=== PATIENT | male | born 1945 | race Caucasian/White ===

== ENCOUNTER 2017-06-27 14:31 | Emergency (ER) | payer OTHER, BC ==
[2017-06-27 14:48] VITALS: TEMP 97.4; BMI 37.0
--- NOTE | 2017-06-27 16:15 | PDOC ---
History of Present Illness - General Chief Complaint: Pain, Acute Stated Complaint: LLQ PAIN X 1 WEEK Time Seen by Provider: 06/27/17 16:09 History Source: Patient Exam Limitations: No Limitations - History of Present Illness Travel History: No Initial Comments: 06/27/17 16:04 71-year-old male presents with left flank pain radiating to his left lower quadrant for the past 2 days worsened with movement patient states no difficulty urinating, moving bowels, fever, chills, chest pain, shortness of breath, cough, rash or abdominal distention. Patient states history of BPH and is under the care of Dr. Mary Savage taking Flomax as prescribed. 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 Timing/Duration: reports: intermittent Quality: reports: moderate, sharpness Abdominal Pain Onset Location: reports: flank Pain Radiation: reports: LLQ Activities at Onset: reports: none Aggravating Factors: improves with: Movement Alleviating Factors: improves with: None Past History - Travel Traveled outside of the country in the last 30 days: No Close contact w/someone who was outside of country & ill: No - Past Medical History Allergies/Adverse Reactions: Allergies Allergy/AdvReac Type Severity Reaction Status Date / Time ciprofloxacin [From Cipro] Allergy Verified 06/27/17 14:44 ciprofloxacin HCl Allergy Verified 06/27/17 14:44 [From Cipro] Home Medications: Ambulatory Orders Dutasteride [Avodart] 0.5 mg PO DAILY 12/27/11 Atorvastatin Ca [Lipitor (Restricted To Cardiology)] 40 mg PO HS 12/28/11 Bimatoprost [Lumigan] 5 ml OP HS 12/28/11 Epinastine HCl [Elestat] 5 ml OP BID 12/28/11 Glycerin/Propylene Glycol [Artificial Tears Drops] 30 ml OP DAILY 12/28/11 Nebivolol [Bystolic] 10 mg PO DAILY 12/28/11 Ziprasidone HCl [Geodon] 20 mg PO DAILY 12/28/11 GI Disorders: Yes (OBESITY.) HTN: Yes - Psycho/Social/Smoking Cessation Hx Anxiety: No Suicidal Ideation: No Smoking Status: No Smoking History: Never smoked Number of Cigarettes Smoked Daily: 0 Hx Alcohol Use: No Drug/Substance Use Hx: No Substance Use Type: None Patient Lives Alone: Yes Lives with/in: lives alone Review of Systems - Review of Systems Able to Perform ROS?: Yes Constitutional: No: Symptoms Reported HEENTM: No: Symptoms Reported Respiratory: No: Symptoms reported Cardiac (ROS): No: Symptoms Reported ABD/GI: Yes: Abdominal cramping. No: Constipated, Diarrhea, Nausea : No: Symptoms Reported Musculoskeletal: No: Symptoms Reported Integumentary: No: Symptoms Reported Endocrine: No: Symptoms Reported Hematologic/Lymphatic: No: Symptoms Reported *Physical Exam - Vital Signs Last Vital Signs Temp Pulse Resp BP Pulse Ox 97.4 F L 76 18 161/95 99 06/27/17 14:44 06/27/17 14:44 06/27/17 14:44 06/27/17 14:44 06/27/17 14:44 - Physical Exam General Appearance: Yes: Nourished, Appropriately Dressed, Disheveled. No: Apparent Distress HEENT: positive: Pharynx Normal (dry) Neck: positive: Supple Respiratory/Chest: positive: Lungs Clear, Normal Breath Sounds. negative: Respiratory Distress, Accessory Muscle Use Cardiovascular: positive: Regular Rhythm, Regular Rate. negative: Murmur Gastrointestinal/Abdominal: positive: Soft. negative: Tenderness (no reproducible pain) Musculoskeletal: negative: CVA Tenderness Extremity: positive: Normal Capillary Refill. negative: Pedal Edema Integumentary: positive: Normal Color, Dry, Warm Neurologic: positive: Motor Strength 5/5 (ambulatory) ED Treatment Course - LABORATORY CBC & Chemistry Diagram: 06/27/17 16:37 06/27/17 16:37 Medical Decision Making - Medical Decision Making 06/27/17 17:15 Pt with c/o of left flnk pain that is intermittent and sharp worsened with movement. pt states hx of renal colic. On exam pt had no acute findings or reproducible pain. Pt ordered for labs, ua, ivf, spiral ct, and toradol. 06/27/17 17:16 Laboratory Tests 06/27/17 16:37 WBC 10.3 H Hgb 13.1 Hct 38.8 Plt Count 118 L Neutrophils % 87.3 H Lymphocytes % 3.7 L
[2017-06-27] MEDS ORDERED: morphine CARPU-JECT 2 MG/1 ML DISP.SYRIN IVPUSH ONE (16:26)
[2017-06-27] MEDS ORDERED: SODIUM CHLORIDE 1,000 ML IV STA (16:26)
[2017-06-27] MEDS ORDERED: morphine CARPU-JECT 2 MG/1 ML DISP.SYRIN ONE (16:43)
[2017-06-27 17:02] LABS: BASOPHIL 0.3 % (0-2.0); EOSINOPHIL 0.1 % (0-4.5); MCH 31.5 pg (25.7-33.7); MCHC 33.8 g/dl (32.0-35.9); MEAN CELL VOLUME 93.1 fl (80-96); MEAN PLT VOLUME 7.5 fl (7.5-11.1); NEUTROPHILS 87.3 % (42.8-82.8); PLATELET COUNT 118 K/MM3 (134-434); RDW 14.3 % (11.9-15.9); WHITE BLOOD COUNT 10.3 K/mm3 (4.0-10.0)
[2017-06-27 17:22] LABS: URINE APPEARANCE CLEAR; URINE BILIRUBIN NEGATIVE (NEGATIVE); URINE BLOOD 1+ (NEGATIVE); URINE COLOR YELLOW; URINE GLUCOSE (UA) NEGATIVE (NEGATIVE); URINE KETONE NEGATIVE (NEGATIVE); URINE LEUK ESTERASE NEGATIVE (NEGATIVE); URINE NITRITE NEGATIVE (NEGATIVE); URINE PROTEIN NEGATIVE (NEGATIVE); URINE UROBILINOGEN NEGATIVE mg/dL (0.2-1.0)
[2017-06-27 17:28] LABS: URINE MUCUS RARE; URINE RBC <1 /hpf (0-3); URINE WBC 2 /hpf (3-5)
[2017-06-27 17:57] LABS: ALBUMIN 3.8 g/dl (3.4-5.0); ALK PHOS 97 U/L (45-117); ANION GAP 9 (8-16); BILIRUBIN,TOTAL 0.6 mg/dL (0.2-1.0); CO2 25 mmol/L (21-32); CREATININE 2.2 mg/dL (0.7-1.3); GLUCOSE,RANDOM 119 mg/dL (74-106); SGOT/AST 12 U/L (15-37); SGPT/ALT 17 U/L (12-78); TOT PROT 7.4 g/dl (6.4-8.2)
--- NOTE | 2017-06-27 21:23 | PDOC ---
*Physical Exam - Vital Signs Last Vital Signs Temp Pulse Resp BP Pulse Ox 97.4 F L 76 18 161/95 99 06/27/17 14:44 06/27/17 14:44 06/27/17 14:44 06/27/17 14:44 06/27/17 14:44 ED Treatment Course - LABORATORY CBC & Chemistry Diagram: 06/27/17 16:37 06/27/17 16:37 - ADDITIONAL ORDERS Additional order review: Laboratory Results 06/27/17 06/27/17 16:37 16:37 Sodium 137 Potassium 4.6 Chloride 103 Carbon Dioxide 25 Anion Gap 9 BUN 28 H Creatinine 2.2 H Creat Clearance w eGFR 29.49 Random Glucose 119 H Calcium 9.0 Total Bilirubin 0.6 AST 12 L ALT 17 Alkaline Phosphatase 97 Total Protein 7.4 Albumin 3.8 Urine Color Yellow Urine Appearance Clear Urine pH 5.0 Ur Specific [place] 1.025 Urine Protein Negative Urine Glucose (UA) Negative Urine Ketones Negative Urine Blood 1+ H Urine Nitrite Negative Urine Bilirubin Negative Urine Urobilinogen Negative Ur Leukocyte Esterase Negative Urine RBC <1 Urine WBC 2 Urine Mucus Rare 06/27/17 16:37 RBC 4.17 MCV 93.1 MCHC 33.8 RDW 14.3 MPV 7.5 Neutrophils % 87.3 H Lymphocytes % 3.7 L Monocytes % 8.6 Eosinophils % 0.1 Basophils % 0.3 - Medications Given in the ED: ED Medications Discontinued Medications Generic Name Dose Route Start Last Admin Trade Name Freq PRN Reason Stop Dose Admin Sodium Chloride 1,000 mls @ 1,000 mls/hr 06/27/17 16:26 06/27/17 16:45 Normal Saline - IV 06/27/17 17:25 1,000 mls/hr ASDIR STA Administration Morphine Sulfate 2 mg 06/27/17 16:26 06/27/17 16:44 Morphine Injection - IVPUSH 06/27/17 16:27 2 mg ONCE ONE Administration Progress Note - Progress Note Progress Note: 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 *DC/Admit/Observation/Transfer Diagnosis at time of Disposition: Renal colic on left side - Discharge Dispostion Disposition: HOME Condition at time of disposition: Stable Admit: No - Prescriptions Prescriptions: Ketorolac Tromethamine [Toradol] 10 mg PO TID #15 tablet Ketorolac Tromethamine [Toradol] 10 mg PO TID #15 tablet - Referrals Referrals: Quan Hollingsworth [Primary Care Provider] - Felice Rea MD [Staff Physician] - - Patient Instructions Printed Discharge Instructions: Kidney Stones -- Adult Additional Instructions: Increase fluids Follow up with the urologist Return to the ER for severe/persistent/worsening symptoms Rx: Toradol 10mg take 1 tablet by mouth three times a day as needed for severe pain Take tylenol as needed for mild pain
[2017-06-27] MEDS ORDERED: KETOROLAC TROMETHAMINE 30 MG/1 ML VIAL IVPUSH ONE (21:34)
[2017-06-27] MEDS ORDERED: KETOROLAC TROMETHAMINE 30 MG/1 ML VIAL ONE (22:40)
[2017-06-27 22:58] VITALS: BP 165/91; PULSE 80
--- NOTE | 2017-06-30 07:52 | PDOC ---
Patient Follow-up (Call Back) - Post ED Follow - Up Condition at time of discharge: Stable Disposition at time of original discharge: HOME Reason for Call Back: Abnwl. Microbiology (Prelim. UC shows enterococcus colony count 20,000-30,000 CFU's. No treatment needed at this time as threshold for treatment is greater than 100,000 CFU's)
== END 2017-06-27 22:58 | disposition home or self-care (01) ==
LOC: SUPCPDRO 14:31 → JER 14:31
PROC: 3E0337Z Introduction of Electrolytic and Water Balance Substance into Peripheral Vein, Percutaneous Approach (ICD-10-PCS; principal; 2017-06-27)
PROC: 3E033NZ Introduction of Analgesics, Hypnotics, Sedatives into Peripheral Vein, Percutaneous Approach (ICD-10-PCS; 2017-06-27)
PROC: 3E0333Z Introduction of Anti-inflammatory into Peripheral Vein, Percutaneous Approach (ICD-10-PCS; 2017-06-27)
DX: N23 Unspecified renal colic (principal); K65.4 Sclerosing mesenteritis
CPT/HCPCS: 36415; 71010-TC; 74176; 80053; 81003; 81015; 85025; 87086; 87186; 96361; 96374; 96375; 99283-25

== ENCOUNTER 2019-07-03 08:14 | Emergency (ER) | payer OTHER, BC ==
--- NOTE | 2019-07-03 08:26 | PDOC ---
History of Present Illness - General Chief Complaint: Overdose Stated Complaint: WEAKNESS Time Seen by Provider: 07/03/19 08:25 - History of Present Illness Initial Comments: 07/03/19 09:18 HPI 73 year old man has a history of HTN, HLD, anxiety and schizophrenic paranoid who presents with accidental overdose of his ziprasidone for 5 days. He was supposed to take 60mg daily however he had a recent medication change to one of his other medications, but mistook it for his ziprasidone and has been taking 300mg of the ziprasidone daily for 5 days. He reports that he felt lightheadedness, weakness, and unsteadiness on his feet. He called poison control, who told him to come to the ED. He denies SI/ HI/ auditory or visual hallucinations. Patient additionally reports he has had some bacteria in his urine and some urinary flow problems ROS GENERAL/CONSTITUTIONAL: No fever or chills. No weakness. HEAD, EYES, EARS, NOSE AND THROAT: No change in vision. No ear pain or discharge. No sore throat. CARDIOVASCULAR: No chest pain or shortness of breath RESPIRATORY: No cough, wheezing, or hemoptysis. GASTROINTESTINAL: No nausea, vomiting, diarrhea or constipation. GENITOURINARY: No dysuria, frequency, or change in urination. MUSCULOSKELETAL: No joint or muscle swelling or pain. No neck or back pain. SKIN: No rash NEUROLOGIC: No headache, vertigo, loss of consciousness, or change in strength/ sensation. PE GENERAL: Awake, alert, and fully oriented, in no acute distress, slow speech HEAD: No signs of trauma, normocephalic, atraumatic EYES: 2mm PERRLA, EOMI, no nystagmus, sclera anicteric, conjunctiva clear ENT: oropharynx clear without exudates. Moist mucosa NECK: Normal ROM, supple LUNGS: No distress, speaks full sentences, clear to auscultation bilaterally HEART: Regular rate and rhythm, normal S1 and S2, no murmurs, rubs or gallops, peripheral pulses normal and equal bilaterally. ABDOMEN: Soft, nontender, normoactive bowel sounds. No guarding, no rebound. No masses EXTREMITIES : Normal inspection, Normal range of motion, trace edema around ankles. No clubbing or cyanosis. NEUROLOGICAL: Cranial nerves II through XII grossly intact. Normal speech, no focal sensorimotor deficits SKIN: Warm, Dry, normal turgor, no rashes or lesions noted MDM DDX including but not limited to: W/U: - TX: - ED Course: PCP Dr. Hollingsworth attempted to be reached however, as it is a holiday weekend the office is closed Pharmacy contacted and reported: proponalol 10mg BID, pravastatin 20mg daily, losartan 25mg daily, ziprasidone 60mg daily, amlodipine 15mg daily Poison control contacted, recommend observation for [address] Lyons (psychiatry) and Dr. Márquez who recommends that patient not take his Ziprasidone until Thursday and should take 3 x 20mg and then follow up with him in clinic on Thursday. Physicians know this patient well and feel that he is reliable and complaint out patient. Will complete obs, repeat ekg and walk patient prior to discharge . Patient agrees to plan expresses understanding and agrees to dsicharge . Maria Elena De Los Santos, PGY2 Emergency Medicine Past History - Past Medical History Allergies/Adverse Reactions: Allergies Allergy/AdvReac Type Severity Reaction Status Date / Time ciprofloxacin [From Cipro] Allergy Verified 07/04/19 07:23 ciprofloxacin HCl Allergy Verified 07/04/19 07:23 [From Cipro] Home Medications: Ambulatory Orders Dutasteride [Avodart] 0.5 mg PO DAILY 12/27/11 Atorvastatin Ca [Lipitor (Restricted To Cardiology)] 20 mg PO HS 12/28/11 Bimatoprost [Lumigan] 5 ml OP HS 12/28/11 Epinastine HCl [Elestat] 5 ml OP BID 12/28/11 Nebivolol [Bystolic] 15 mg PO DAILY 12/28/11 Ziprasidone HCl [Geodon] 60 mg PO DAILY 12/28/11 Amlodipine Besylate [Norvasc -] 2.5 mg PO DAILY 06/27/17 Tamsulosin HCl [Flomax] 0.8 mg PO DAILY 06/27/17 Losartan Potassium 25 mg PO DAILY 07/03/19 COPD: No GI Disorders: Yes (OBESITY.) HTN: Yes Psychiatric Problems: Yes (anxiety) - Suicide/Smoking/Psychosocial Hx Smoking Status: No Smoking History: Never smoked Number of Cigarettes Smoked Daily: 0 Hx Alcohol Use: No Drug/Substance Use Hx: No Substance Use Type: None *Physical Exam - Vital Signs Last Vital Signs Temp Pulse Resp BP Pulse Ox 97.9 F 60 18 148/97 99 07/03/19 08:17 07/03/19 08:17 07/03/19 08:17 07/03/19 08:17 07/03/19 08:17 ED Treatment Course - LABORATORY CBC & Chemistry Diagram: 07/03/19 08:51 07/03/19 08:51 *DC/Admit/Observation/Transfer Diagnosis at time of Disposition: Overdose - Discharge Dispostion Disposition: HOME Condition at time of disposition: Stable Decision to Admit order: No - Referrals Referrals: Quan Hollingsworth [Primary Care Provider] - - Patient Instructions Printed Discharge Instructions: DI for Drug Overdose in Adults Additional Instructions: You were seen in the ED for complaints of lightheadedness and unsteadiness on feet. You were observed for 6 hours and had no complaints. Tonight (Thursday) you will pick you your Geodon 20mg at your pharmacy at [facility] on Thursday you will take 3 of the 20mg tablets Thursday you will see Dr. Márquez in the office for an appointment. Return to the ED if you experience worsening lightheadedness and unsteadiness on the feet, nausea, vomiting or chest pain. - Post Discharge Activity
[2019-07-03] MEDS ORDERED: SODIUM CHLORIDE 1,000 ML IV SCH (08:30)
[2019-07-03 09:07] VITALS: BMI 40.1
[2019-07-03 09:22] LABS: BASO % 0.4 % (0-2.0); EOS % 0.8 % (0-4.5); HEMATOCRIT 35.8 % (35.4-49); HEMOGLOBIN 12.1 GM/dL (11.7-16.9); LYMPH % 10.3 % (8-40); MCH 31.8 pg (25.7-33.7); MCHC 33.9 g/dl (32.0-35.9); MEAN CELL VOLUME 93.9 fl (80-96); MEAN PLT VOLUME 7.3 fl (7.5-11.1); MONO % 6.1 % (3.8-10.2); NEUT % 82.4 % (42.8-82.8); PLATELET COUNT 179 K/MM3 (134-434); RBC 3.81 M/mm3 (4.00-5.60); RDW 15.1 % (11.9-15.9); WHITE BLOOD COUNT 10.3 K/mm3 (4.0-10.0)
[2019-07-03] MEDS ORDERED: SODIUM CHLORIDE 500 ML IV SCH (09:30)
--- NOTE | 2019-07-03 09:37 | EKG ---
Test Reason : Blood Pressure : / mmHG Vent. Rate : 058 BPM Atrial Rate : 258 BPM P-R Int : 000 ms QRS Dur : 074 ms QT Int : 478 ms P-R-T Axes : 050 016 021 degrees QTc Int : 469 ms POOR DATA QUALITY, INTERPRETATION MAY BE ADVERSELY AFFECTED SINUS BRADYCARDIA ABNORMAL ECG Confirmed by BARI SHEPPARD, YARON ([id number]) on 07/03/2019 9:37:44 AM Referred By: Confirmed By:YARON CANDELARIA MD
--- NOTE | 2019-07-03 09:55 | PDOC ---
Documentation entered by Андрей Alcantara SCRIBE, acting as scribe for Anju Duarte DO. Anju Duarte, DO: This documentation has been prepared by the Quinton mclean Nirvannie, SCRIBE, under my direction and personally reviewed by me in its entirety. I confirm that the documentation accurately reflects all work, treatment, procedures, and medical decision making performed by me. Attending Attestation - Resident Resident Name: Maria Elena De Los Santos - ED Attending Attestation I have performed the following: I have examined & evaluated the patient, The case was reviewed & discussed with the resident, I agree w/resident's findings & plan - HPI HPI: 07/03/19 10:02 The patient is a 73 year old male, with a significant past medical history of anxiety, schizophrenia, HTN, and HLD, who presents to the emergency department with, accidental Ziprasidone overdose (last dosage 7pm). As per patient, he went to see his psychiatrist (Dr. Mariangel Lyons, [place]) 5 days ago ( Thursday) at which time he believes his psychiatrist changed his Ziprasidone 60 mg from once daily to 5 times times/day. Patient endorses feeling lightheadedness, dizziness, and notes an unsteady gait. He also notes 3 episodes of abnormal urine stream yesterday, as he attempted to urinate felt mild hesistency and the stream deviated to the left wetting his pants. Patient recently had bloodwork preformed by his PCP Dr. Hollingsworth and endorses normal Creatine, BUN, and kidney functions with a urinalysis depicting high to moderate bacteria with negative nitrites, proteins, and glucose. He denies any suicidal or homicidal ideation. He denies any recent chest pain or shortness of breath. He denies any recent dysuria or hematuria. He denies any recent fevers, chills, or headache. He denies any recent nausea, vomiting, diarrhea, or constipation. Allergies: Ciprofloxacin. Primary Care Physician: Dr. Hollingsworth Psychiatrist: Dr. Mariangel Lyons (O: [phone]; C: [phone], [place], [place] ) - Physicial Exam PE: 07/03/19 10:09 Constitutional: +Dry urine odor. Awake, alert, oriented. No acute distress. Head: Normocephalic. Atraumatic Eyes: Pupils 2mm Equal, Round, Reactive to Light and Accommodation . EOMI. Conjunctivae are not pale. ENT: Mucous membranes are moist and intact. Posterior pharynx without exudates or erythema. Uvula midline. Neck: Supple. Full ROM. No lymphadenopathy. Cardiovascular: Regular rate. Regular rhythm. S1, S2 regular. Distal pulses are 2+ and symmetric. Pulmonary/Chest: No evidence of respiratory distress. Clear to auscultation bilaterally No wheezing, rales or rhonchi. Abdominal: +Obese. Soft and non-distended. There is no tenderness. No rebound , guarding or rigidity. No organomegaly. No palpable masses. Good bowel sounds. Back: No CVA tenderness. Musculoskeletal: +Trace lower extremity edema. No cyanosis. No clubbing. Full range of motion in all extremities. No calf tenderness. Radial/pedal pulses are intact and 2+ bilaterally Skin: Skin is warm and dry. No petechiae. No purpura. Neurological: Slow, flat affect. Alert and oriented to person, place, and time. Cranial nerves II-XII are grossly intact. Strength is grossly symmetric. No sensory deficits. Psychiatric: Good eye contact. +Flat affect. - Medical Decision Making 07/03/19 09:49 I, Dr. Anju Duarte, DO, attest that this document has been prepared under my direction and personally reviewed by me in its entirety. I further attest, that it accurately reflects all work, treatment, procedures and medical decision -making performed by me. 07/03/19 09:49 a/p: 73yo male with 2 complaints -1st complaint is abnl urination since yesterday - urine stream arced to the side yesterday staining his pants -2nd complaint was that his psychiatrist - Dr. Lyons changed his geodon dosing - thinks he was told to take 5 tabs of 60mg geodon at night - has been doing this since thursday -pt called poison control who told him to come in he was feeling weak today -pt denies mccabe, no cp/sob, no abd pain, no dysuria -pt denies si/hi -poss overdose from geodon -pt with flat affect -poss uti -will send labs, ua, poison control, monitoring -will call Dr. Lyons -will call Dr. Sarah 07/03/19 09:[address] Sarah message left for dr. lyons 07/03/19 10:06 labs reviewed and stable pending ua 9:30AM Call placed to Dr. Mariangel Lyons, psychiatrist's office, awaiting call back. 10:00AM Second call placed to Dr. Mariangel Lyons, psychiatrist's office, awaiting call back. 07/03/19 11:11 ua neg will continue to monitor for 6 hours per poison control 07/03/19 11:21 resident discussed the case with Dr. Lyons 07/03/19 11:[address] Lyons supposed to take 5 20mg geodon for max of 100 per day and not 5 60mg tabs per day pt with hx of paranoia and anxiety - recently stopped latuda 07/03/19 11:[address] Sarah 07/03/19 11:[address] Márquez 07/03/19 12:51 resident discussed the case with Dr. Márquez - will see in clinic on thursday schizophrenia with paranoid 07/03/19 13:24 resident again discused with Dr. Lyons- plan for 3 20mg geodon tomorrow, see jack on thursday07/03/19 13:30 pt agrees with the plan stable for dc to home in 40 min Heart Score/ECG Review - ECG Intrepretation Comment:: 07/03/19 09:55 sinus darrell ta 58, baseline artifact, nl axis, nl interval, abnl ekg
[2019-07-03 09:57] LABS: ALBUMIN 3.4 g/dl (3.4-5.0); BILIRUBIN,TOTAL 0.4 mg/dL (0.2-1); BLOOD UREA NITROGEN 14.9 mg/dL (7-18); CALCIUM 8.6 mg/dL (8.5-10.1); CREATININE 1.1 mg/dL (0.55-1.3); POTASSIUM 4.1 mmol/L (3.5-5.1); TOT PROT 6.6 g/dl (6.4-8.2)
[2019-07-03 10:53] LABS: URINE APPEARANCE CLEAR; URINE BILIRUBIN NEGATIVE (NEGATIVE); URINE COLOR YELLOW; URINE GLUCOSE (UA) NEGATIVE (NEGATIVE); URINE KETONE NEGATIVE (NEGATIVE); URINE LEUK ESTERASE NEGATIVE (NEGATIVE); URINE NITRITE NEGATIVE (NEGATIVE); URINE PROTEIN NEGATIVE (NEGATIVE)
[2019-07-03 10:56] LABS: COCAINE, UR NEGATIVE ng/ml (CUTOFF=300); METHADONE, UR NEGATIVE ng/ml (CUTOFF=300); OPIATES, URI NEGATIVE ng/ml (CUTOFF=300); PHENCYCLIDINE,URINE NEGATIVE ng/ml (CUTOFF=25); URINE AMPHETAMINES NEGATIVE ng/ml (CUTOFF=500); URINE BARBITURATES NEGATIVE ng/ml (CUTOFF=200); URINE BENZODIAZEPINES NEGATIVE ng/ml (CUTOFF=200)
[2019-07-03 14:19] VITALS: BP 159/89; PULSE 62; TEMP 98
--- NOTE | 2019-07-04 09:32 | EKG ---
Test Reason : Blood Pressure : / mmHG Vent. Rate : 061 BPM Atrial Rate : 061 BPM P-R Int : 198 ms QRS Dur : 078 ms QT Int : 460 ms P-R-T Axes : 051 015 019 degrees QTc Int : 463 ms NORMAL SINUS RHYTHM NORMAL ECG WHEN COMPARED WITH ECG OF 03-JUL-2019 08:36, SINUS RHYTHM HAS REPLACED ATRIAL FLUTTER Confirmed by MUSA SHEPPARD, KILO ([id number]) on 07/04/2019 9:31:47 AM Referred By: Confirmed By:KILO VIGIL MD
== END 2019-07-03 14:22 | disposition home or self-care (01) ==
LOC: JER 08:14
PROC: 3E033GC Introduction of Other Therapeutic Substance into Peripheral Vein, Percutaneous Approach (ICD-10-PCS; principal; 2019-07-03)
DX: R42 Dizziness and giddiness (principal); I10 Essential (primary) hypertension; F41.9 Anxiety disorder, unspecified; F20.0 Paranoid schizophrenia
CPT/HCPCS: 36415; 80053; 80307; 81003; 85025; 87077; 87086; 87186; 93005; 93010; 96374; 99285-25; J7030

== ENCOUNTER 2019-07-04 07:00 | Emergency (ER) | payer OTHER, BC ==
[2019-07-04 07:27] VITALS: TEMP 98.1; BMI 40.1
--- NOTE | 2019-07-04 07:49 | PDOC ---
History of Present Illness - General Chief Complaint: Lightheaded Stated Complaint: LIGHTHEADED/NAUSEA Time Seen by Provider: 07/04/19 07:30 - History of Present Illness Initial Comments: 07/04/19 07:52 73 year old man has a history of HTN, HLD, anxiety and schizophrenic paranoid, recent accidental overdose of ziprasidone who presents with nausea and lightheadedness ROS GENERAL/CONSTITUTIONAL: No fever or chills. No weakness. HEAD, EYES, EARS, NOSE AND THROAT: No change in vision. No ear pain or discharge. No sore throat. CARDIOVASCULAR: No chest pain or shortness of breath RESPIRATORY: No cough, wheezing, or hemoptysis. GASTROINTESTINAL: No nausea, vomiting, diarrhea or constipation. GENITOURINARY: No dysuria, frequency, or change in urination. MUSCULOSKELETAL: No joint or muscle swelling or pain. No neck or back pain. SKIN: No rash NEUROLOGIC: No headache, vertigo, loss of consciousness, or change in strength/ sensation. ENDOCRINE: No increased thirst. No abnormal weight change HEMATOLOGIC/LYMPHATIC: No anemia, easy bleeding, or history of blood clots. ALLERGIC/IMMUNOLOGIC: No hives or skin allergy. PE GENERAL: Awake, alert, and fully oriented, in no acute distress HEAD: No signs of trauma, normocephalic, atraumatic EYES: PERRLA, EOMI, sclera anicteric, conjunctiva clear ENT: Auricles normal inspection, hearing grossly normal, nares patent, oropharynx clear without exudates. Moist mucosa NECK: Normal ROM, supple, no lymphadenopathy, JVD, or masses LUNGS: No distress, speaks full sentences, clear to auscultation bilaterally HEART: Regular rate and rhythm, normal S1 and S2, no murmurs, rubs or gallops, peripheral pulses normal and equal bilaterally. ABDOMEN: Soft, nontender, normoactive bowel sounds. No guarding, no rebound. No masses EXTREMITIES : Normal inspection, Normal range of motion, no edema. No clubbing or cyanosis. NEUROLOGICAL: Cranial nerves II through XII grossly intact. Normal speech, normal gait, no focal sensorimotor deficits SKIN: Warm, Dry, normal turgor, no rashes or lesions noted MDM DDX including but not limited to: W/U: - TX: - Scores: ED Course: ekg: sinus at 59bpm, QTc [address] - no acute pathology ua, utox- wnl Maria Elena Filiberto, PGY2 Emergency Medicine 07/04/19 10:46 07/04/19 10:46 07/04/19 10:47 Past History - Past Medical History Allergies/Adverse Reactions: Allergies Allergy/AdvReac Type Severity Reaction Status Date / Time ciprofloxacin [From Cipro] Allergy Verified 07/04/19 07:23 ciprofloxacin HCl Allergy Verified 07/04/19 07:23 [From Cipro] Home Medications: Ambulatory Orders Dutasteride [Avodart] 0.5 mg PO DAILY 12/27/11 Atorvastatin Ca [Lipitor (Restricted To Cardiology)] 20 mg PO HS 12/28/11 Bimatoprost [Lumigan] 5 ml OP HS 12/28/11 Epinastine HCl [Elestat] 5 ml OP BID 12/28/11 Nebivolol [Bystolic] 15 mg PO DAILY 12/28/11 Ziprasidone HCl [Geodon] 60 mg PO DAILY 12/28/11 Amlodipine Besylate [Norvasc -] 2.5 mg PO DAILY 06/27/17 Tamsulosin HCl [Flomax] 0.8 mg PO DAILY 06/27/17 Losartan Potassium 25 mg PO DAILY 07/03/19 COPD: No GI Disorders: Yes (OBESITY.) HTN: Yes Psychiatric Problems: Yes (anxiety) - Suicide/Smoking/Psychosocial Hx Smoking Status: No Smoking History: Never smoked Number of Cigarettes Smoked Daily: 0 Hx Alcohol Use: No Drug/Substance Use Hx: No Substance Use Type: None *Physical Exam - Vital Signs Last Vital Signs Temp Pulse Resp BP Pulse Ox 98.1 F 63 18 182/81 H 96 07/04/19 07:23 07/04/19 07:23 07/04/19 07:23 07/04/19 07:23 07/04/19 07:23 ED Treatment Course - LABORATORY CBC & Chemistry Diagram: 07/04/19 07:50 07/04/19 07:50 *DC/Admit/Observation/Transfer Diagnosis at time of Disposition: Dizziness - Discharge Dispostion Disposition: HOME Condition at time of disposition: Stable Decision to Admit order: No - Referrals Referrals: Quan Hollingsworth [Primary Care Provider] - - Patient Instructions Printed Discharge Instructions: DI for Dizziness-Nonvertigo, DI for Nausea -- Adult Additional Instructions: You were seen in the ED for complaints of lightheadedness and nausea Your labwork and imaging were unremarkable. Today (Thursday) you will take 3 of the 20mg tablets Thursday you will see Dr. Márquez in the office for an appointment. Return to the ED if you experience worsening lightheadedness and unsteadiness on the feet, nausea, vomiting or chest pain. - Post Discharge Activity
[2019-07-04] MEDS ORDERED: MECLIZINE HCL 25 MG TABLET (FP) PO ONE (08:28)
[2019-07-04 08:32] LABS: BASO % 0.4 % (0-2.0); EOS % 1.3 % (0-4.5); HEMATOCRIT 35.8 % (35.4-49); HEMOGLOBIN 12.1 GM/dL (11.7-16.9); LYMPH % 16.7 % (8-40); MCH 31.7 pg (25.7-33.7); MCHC 33.8 g/dl (32.0-35.9); MEAN CELL VOLUME 93.8 fl (80-96); MEAN PLT VOLUME 7.5 fl (7.5-11.1); MONO % 6.4 % (3.8-10.2); NEUT % 75.2 % (42.8-82.8); PLATELET COUNT 193 K/MM3 (134-434); RBC 3.82 M/mm3 (4.00-5.60); RDW 15.1 % (11.9-15.9); WHITE BLOOD COUNT 8.3 K/mm3 (4.0-10.0)
[2019-07-04] MEDS ORDERED: MECLIZINE HCL 25 MG TABLET (FP) ONE (08:35)
[2019-07-04 08:38] LABS: ALBUMIN 3.5 g/dl (3.4-5.0); ALK PHOS 103 U/L (45-117); ANION GAP 6 MMOL/L (8-16); BILIRUBIN,TOTAL 0.4 mg/dL (0.2-1); CALCIUM 9.1 mg/dL (8.5-10.1); CHLORIDE 107 mmol/L (98-107); CO2 25 mmol/L (21-32); GLUCOSE,RANDOM 112 mg/dL (74-106); POTASSIUM 4.2 mmol/L (3.5-5.1); SGOT/AST 17 U/L (15-37); SGPT/ALT 16 U/L (13-61); SODIUM 139 mmol/L (136-145); TOT PROT 6.9 g/dl (6.4-8.2)
--- NOTE | 2019-07-04 09:07 | EKG ---
Test Reason : Blood Pressure : / mmHG Vent. Rate : 059 BPM Atrial Rate : 059 BPM P-R Int : 190 ms QRS Dur : 080 ms QT Int : 438 ms P-R-T Axes : 061 015 022 degrees QTc Int : 433 ms POOR DATA QUALITY, INTERPRETATION MAY BE ADVERSELY AFFECTED SINUS BRADYCARDIA OTHERWISE NORMAL ECG WHEN COMPARED WITH ECG OF 03-JUL-2019 13:46, NO SIGNIFICANT CHANGE WAS FOUND Confirmed by MUSA SHEPPARD, KILO ([id number]) on 07/04/2019 9:07:21 AM Referred By: Confirmed By:KILO VIGIL MD
[2019-07-04 09:42] LABS: PH,URINE 7.5 (5.0-8.0); URINE APPEARANCE CLEAR; URINE BILIRUBIN NEGATIVE (NEGATIVE); URINE COLOR YELLOW; URINE GLUCOSE (UA) NEGATIVE (NEGATIVE); URINE KETONE NEGATIVE (NEGATIVE); URINE LEUK ESTERASE NEGATIVE (NEGATIVE); URINE NITRITE NEGATIVE (NEGATIVE); URINE PROTEIN NEGATIVE (NEGATIVE); URINE UROBILINOGEN 0.2 mg/dL (0.2-1.0)
[2019-07-04 09:53] LABS: COCAINE, UR NEGATIVE ng/ml (CUTOFF=300); METHADONE, UR NEGATIVE ng/ml (CUTOFF=300); OPIATES, URI NEGATIVE ng/ml (CUTOFF=300); PHENCYCLIDINE,URINE NEGATIVE ng/ml (CUTOFF=25); URINE AMPHETAMINES NEGATIVE ng/ml (CUTOFF=500); URINE BARBITURATES NEGATIVE ng/ml (CUTOFF=200); URINE BENZODIAZEPINES NEGATIVE ng/ml (CUTOFF=200)
[2019-07-04] MEDS ORDERED: ONDANSETRON 4 MG/2 ML VIAL IVPUSH ONE (10:37)
[2019-07-04] MEDS ORDERED: ONDANSETRON 4 MG/2 ML VIAL ONE (10:49)
[2019-07-04 11:31] VITALS: BP 136/76; PULSE 60
--- NOTE | 2019-07-04 18:11 | PDOC ---
Documentation entered by Thom Meadows SCRIBE, acting as scribe for Ethel Wynn MD. Ethel Wynn MD: This documentation has been prepared by the Abdiel mclean Daniel, SCRIBE, under my direction and personally reviewed by me in its entirety. I confirm that the documentation accurately reflects all work, treatment, procedures, and medical decision making performed by me. Attending Attestation - Resident Resident Name: Maria Elena De Los Santos - ED Attending Attestation I have performed the following: I have examined & evaluated the patient, The case was reviewed & discussed with the resident, I agree w/resident's findings & plan, Exceptions are as noted - HPI HPI: 07/04/19 11:57 73 year old man has a history of HTN, HLD, anxiety and schizophrenia, recent accidental overdose of ziprasidone who presents with nausea and lightheadedness this morning. Pt reports the lightheadedness occurred when he was standing out of bed this morning and since then, he has felt nauseous. Denies fevers, chills , headache, cp, sob, focal weakness/numbness, abd pain, LE edema. - Physicial Exam PE: 07/04/19 11:44 GENERAL: Awake, alert, and fully oriented, in no acute distress HEAD: No signs of trauma. EYES: PERRLA, EOMI, sclera anicteric, conjunctiva clear ENT: Auricles normal inspection, hearing grossly normal, nares patent, oropharynx clear without exudates. Moist mucosa NECK: Normal ROM, supple, no lymphadenopathy, JVD, or masses LUNGS: Breath sounds equal, clear to auscultation bilaterally. No wheezes, and no crackles HEART: Regular rate and rhythm, normal S1 and S2, no murmurs, rubs or gallops ABDOMEN: Soft, nontender, normoactive bowel sounds. No guarding, no rebound. No masses EXTREMITIES: Normal range of motion, no edema. No clubbing or cyanosis. No cords , erythema, or tenderness BACK: No midline spinal tenderness in cervical/thoracic/lumbar region NEUROLOGICAL: Normal speech, cranial nerves intact, 5/5 strength in all 4 extremities, normal sensation to light touch in all 4 extremities, normal cerebellar exam, slow but steady and normal gait SKIN: Warm, Dry, normal turgor, no rashes or lesions noted. - Medical Decision Making 07/04/19 12:01 73yo M prseents to the ED with lightheadness and nausea, both of which have resolved with fluids and zofran. At this time, pt feels well and is at baseline His labs, UA are all unremarkable. EKG is wnl He is tolerating PO Pt well appearing Rpt vitals wnl It is likely that pt was mildly dehydrated and thus feels better after 1 L Given 2nd visit in 2 days, case was discussed with Dr. Márquez by Dr. De Los Santos and pt was offered observation admission. All labs, results have been reviewed with Dr. Márquez. She recommends discharge and she will see him in clinic tomorrow Results and plan discussed with pt who is eager to go home and feels well He is clinically stable for DC home. I discussed the physical exam findings, ancillary test results and final diagnoses with the patient. I answered all of the patient's questions. The patient was satisfied with the care received and felt comfortable with the discharge plan and treatment plan. The patient will call their primary care physician within 24 hours to arrange follow-up and will return to the Emergency Department with any new, persistent or worsening symptoms. Heart Score/ECG Review #1 07/04/19 18:07 EKG read and int by me: Sinus bradycardia, rate 59. Normal axis and intervals. No LEV.
== END 2019-07-04 12:05 | disposition home or self-care (01) ==
LOC: JER 07:00
PROC: 3E033GC Introduction of Other Therapeutic Substance into Peripheral Vein, Percutaneous Approach (ICD-10-PCS; principal; 2019-07-04)
DX: R42 Dizziness and giddiness (principal); I10 Essential (primary) hypertension; E78.5 Hyperlipidemia, unspecified; F41.9 Anxiety disorder, unspecified; F20.0 Paranoid schizophrenia
CPT/HCPCS: 36415; 70450-TC; 80053; 80307; 81003; 82550; 84484; 85025; 93005; 93010; 96374; 99284-25

== ENCOUNTER 2020-08-03 13:49 | Emergency (ER) | payer OTHER, BC ==
[2020-08-03 14:02] VITALS: TEMP 98.6; BMI 32.6
--- NOTE | 2020-08-03 14:54 | PDOC ---
History of Present Illness - General Chief Complaint: Injury Stated Complaint: FALL Time Seen by Provider: 08/03/20 14:06 History Source: Patient Exam Limitations: No Limitations Past History - Travel History Traveled outside of the country in the last 30 days: No Close contact w/someone who was outside of country & ill: No - Medical History Allergies/Adverse Reactions: Allergies Allergy/AdvReac Type Severity Reaction Status Date / Time ciprofloxacin [From Cipro] Allergy Verified 11/04/19 13:18 ciprofloxacin HCl Allergy Verified 11/04/19 13:18 [From Cipro] Home Medications: Ambulatory Orders Bimatoprost [Lumigan] 1 drop .ROUTE ASDIR 11/04/19 Clonidine HCl 0.1 mg PO BID 11/04/19 Divalproex Sodium 125 mg PO BID 11/04/19 Epinastine HCl 1 drop .ROUTE ASDIR 11/04/19 Losartan Potassium 100 mg PO DAILY 11/04/19 Potassium Citrate [Potassium Citrate ER] 10 meq PO BID 11/04/19 Pravastatin Sodium [Pravachol -] 1 tab PO HS 11/04/19 Timolol Maleate [Istalol] 1 drop .ROUTE ASDIR 11/04/19 COPD: No GI Disorders: Yes (OBESITY.) HTN: Yes Psychiatric Problems: Yes (anxiety) - Immunization History Immunization Up to Date: No - Psycho-Social/Smoking History Smoking Status: No Smoking History: Never smoked Have you smoked in the past 12 months: No Number of Cigarettes Smoked Daily: 0 Information on smoking cessation initiated: No - Substance Abuse Hx (Audit-C & DAST Scrn) How often the patient has a drink containing alcohol: Never Score: In Men: 4 or > Positive; In Women: 3 or > Positive: 0 Screen Result (Pos requires Nsg. Audit-10AR): Negative In the last yr the pt used illegal drug/Rx for NonMed reason: No Score: Yes response is considered Positive: 0 Screen Result (Positive result requires Nsg. DAST-10): Negative Review of Systems - Review of Systems Able to Perform ROS?: Yes Comments:: 08/03/20 22:39 CONSTITUTIONAL: Absent: fever, chills, diaphoresis, generalized weakness, malaise, loss of appetite HEENT: Absent: rhinorrhea, nasal congestion, throat pain, throat swelling, difficulty swallowing, mouth swelling, ear pain, eye pain, visual Changes CARDIOVASCULAR: Absent: chest pain, loss of consciousness, palpitations, irregular heart rate, peripheral edema RESPIRATORY: Absent: cough, shortness of breath, dyspnea with exertion, orthopnea, wheezing, stridor, hemoptysis GASTROINTESTINAL: Absent: abdominal pain, abdominal distension, nausea, vomiting, diarrhea, constipation, melena, hematochezia GENITOURINARY: Absent: dysuria, frequency, urgency, hesitancy, hematuria, flank pain, genital pain MUSCULOSKELETAL: Present: Left arm pain Absent: myalgia, arthralgia, joint swelling SKIN: Absent: rash, itching, pallor HEMATOLOGIC/IMMUNOLOGIC: Absent: easy bleeding, easy bruising, lymphadenopathy, frequent infections ENDOCRINE: Absent: unexplained weight gain, unexplained weight loss, heat intolerance, cold intolerance NEUROLOGIC: Absent: headache, focal weakness or paresthesias, dizziness, unsteady gait, seizure, mental status changes, bladder or bowel incontinence PSYCHIATRIC: Absent: anxiety, depression, suicidal or homicidal ideation, hallucinations. Is the patient limited [place]ian proficient: No *Physical Exam - Vital Signs Last Vital Signs Temp Pulse Resp BP Pulse Ox 98.6 F 77 18 130/70 98 08/03/20 14:00 08/03/20 14:00 08/03/20 14:00 08/03/20 14:00 08/03/20 14:00 - Physical Exam 08/03/20 22:39 GENERAL: Well developed, well nourished. Awake and alert. No acute distress. HEENT: Normocephalic, atraumatic. PERRLA, EOMI. No conjunctival pallor. Sclera are non- icteric. Moist mucous membranes. NECK: Supple. Full ROM. No lymphadenopathy. CARDIOVASCULAR: Regular rate and rhythm. Distal pulses are 2+ and symmetric. PULMONARY: No evidence of respiratory distress. Lungs clear to auscultation bilaterally. No wheezing, rales or rhonchi. ABDOMINAL: Soft. Non-tender. Non-distended. No rebound or guarding. MUSCULOSKELETAL TTP of the L forearm with visible hematoma to the dorsal aspect. Normal range of motion at all joints. No bony deformities or tenderness. No CVA tenderness. EXTREMITIES: No cyanosis. No clubbing. No edema. No calf tenderness. SKIN: Warm and dry. Normal capillary refill. No rashes. No jaundice. NEUROLOGICAL: Alert, awake, appropriate. Cranial nerves 2-12 intact. No deficits to light touch and temperature in face, upper extremities and lower extremities. No motor deficits in the in face, upper extremities and lower extremities. Normoreflexic in the upper and lower extremities. Normal speech. Toes are down-going bilaterally. Gait is normal without ataxia. PSYCHIATRIC: Cooperative. Good eye contact. Appropriate mood and affect. ED Treatment Course - RADIOLOGY Radiology Studies Ordered: Category Date Time Status CERVICAL SPINE CT W/O CONTR [CT] Stat CT Scan 08/03/20 14:[address] WITHOUT CONTRAST [CT] Stat CT Scan 08/03/20 14:22 Ordered FOREARM- LEFT [RAD] Stat Radiology 08/03/20 14:23 Ordered Medical Decision Making - Medical Decision Making 08/03/20 22:42 The patient is a 74-year-old male with past medical history of hypertension, glaucoma, presents to the ER today for injuries after fall. He states he was out to eat at a diner when he tripped on the plastic rug. He notes that he fell forward landing on his left wrist. He denies hitting his head or losing consciousness. He states he does not take blood thinners. He came to the ER because he was concerned that his left arm was very swollen. Denies nausea, vomiting, lightheadedness and dizziness, chest pain and difficulty breathing. A/P: Hematoma On exam there is a large hematoma to the left forearm on the dorsal aspect. P atient is full range of motion of the left arm. Patient is right-hand dominant. Given age and fall, head CT neck CT ordered. There is no acute pathology. Left arm x-ray is read by myself, hematoma present however no fractures are identified. We will treat with symptomatic relief for a hematoma including heat/ice and compression. Patient advised to follow-up with his primary care doctor on Thursday Discharge home I discussed the physical exam findings, ancillary test results and final diagnoses with the patient. I answered all of the patient's questions. The patient was satisfied with the care received and felt comfortable with the discharge plan and treatment plan. The Patient agrees to follow up with the primary care physician/specialist within 24-72 hours. Return precautions were given. Discharge - Discharge Information Problems reviewed: Yes Clinical Impression/Diagnosis: Hematoma Fall Qualifiers: Encounter type: initial encounter Qualified Code(s): W19.XXXA - Unspecified fall, initial encounter Condition: Stable Disposition: HOME - Admission No - Follow up/Referral Referrals: Quan Hollingsworth [Primary Care Provider] - - Patient Discharge Instructions Patient Printed Discharge Instructions: DI for Hematoma (Bruise) Additional Instructions: You were seen for injuries after your fall today. Your x-ray of your arm did not show any broken bones. You have a hematoma or a large bruise. Please alternate between putting a heating pad and an ice pack on the arm. You may put them on for 20 minutes at a time. You may wear an Kobi wrap on the arm to help with the swelling. You may take it off to sleep. Your CT scans did not show any acute pathology in your brain or neck today. You did not have any broken bones. Please follow-up with your primary care doctor next week. Return to the ER for any new or worsening symptoms. - Post Discharge Activity
[2020-08-03 17:06] VITALS: BP 140/70; PULSE 72
== END 2020-08-03 17:15 | disposition home or self-care (01) ==
LOC: JER 13:49
DX: S60.212A Contusion of left wrist, initial encounter (principal)
CPT/HCPCS: 70450-TC; 72125-TC; 73090-TC-LT-FY; 99284-25

== ENCOUNTER 2022-09-30 11:44 | Inpatient (IN) | payer OTHER, BC ==
[2022-09-30 12:44] VITALS: BMI 38.7
[2022-09-30] MEDS ORDERED: PIPERACILLIN/TAZOB 3.375 GM 3.375 GM in DEXTROSE 5%-WATER - 50 ML IVPB ONE (15:29)
[2022-09-30] MEDS ORDERED: VANCOMYCIN/WATER 1,250 MG/250 ML BAG (RESTRICTED TO ID ONLY) IVPB ONE (15:30)
[2022-09-30] MEDS ORDERED: VANCOMYCIN/WATER 1250 MG 1,250 MG/250 ML BAG IVPB ONE (15:57)
[2022-09-30] MEDS ORDERED: PIPERACILLIN/TAZOB 3.375 GM 3.375 GM/50 ML BAG IVPB ONE (15:58)
[2022-09-30 16:51] LABS: BASO % 0.4 % (0-2.0); EOS % 1.5 % (0-4.5); HEMATOCRIT 33.4 % (35.4-49); LYMPH % 14.6 % (8-40); MCH 29.9 pg (25.7-33.7); MCHC 32.8 g/dl (32.0-35.9); MEAN CELL VOLUME 91.1 fl (80-96); MEAN PLT VOLUME 7.5 fl (7.5-11.1); MONO % 8.8 % (3.8-10.2); NEUT % 74.7 % (42.8-82.8); PLATELET COUNT 173 10^3/uL (134-434); RBC 3.67 M/mm3 (4.00-5.60); RDW 15.8 % (11.9-15.9); WHITE BLOOD COUNT 7.9 K/mm3 (4.0-10.0)
[2022-09-30 17:10] LABS: CALCIUM 8.7 mg/dL (8.5-10.1)
[2022-09-30 17:11] LABS: BLOOD UREA NITROGEN 14.3 mg/dL (7-18)
[2022-09-30 17:15] LABS: BILIRUBIN,TOTAL 0.4 mg/dL (0.2-1); TOT PROT 6.6 g/dl (6.4-8.2)
[2022-09-30 17:36] LABS: ERYTHROCYTE SEDIMENTATION RATE 14 mm/hr (0-20)
[2022-09-30] MEDS ORDERED: BIMATOPROST 0.01% OS SCH (23:00)
[2022-10-01] MEDS ORDERED: PIPERACILLIN/TAZOB 3.375 GM 3.375 GM/50 ML BAG IVPB ONE (05:12)
[2022-10-01] MEDS: PIPERACILLIN/TAZOB 3.375 GM 3.375 GM in DEXTROSE 5%-WATER - 50 ML IVPB SCH ×2 (05:36→17:41)
[2022-10-01] MEDS ORDERED: VANCOMYCIN 1 GM PREMIX - 1 GM/200 ML BAG IVPB SCH ×3 (07:00→11:00)
[2022-10-01] MEDS ORDERED: cloNIDine HCL 0.1 MG TABLET PO ONE (08:53)
[2022-10-01] MEDS: PIPERACILLIN/TAZOB 3.375 GM 3.375 GM/50 ML BAG IVPB SCH ×2 (09:29→17:42)
[2022-10-01] MEDS: INSULIN SLIDING SCALE (NOVOLOG) 1 VIAL SQ SCH ×4 (09:29→21:39)
[2022-10-01] MEDS ORDERED: ENOXAPARIN NA (PORCINE) 40 MG/0.4 ML DISP.SYRIN SQ SCH (10:00)
[2022-10-01] MEDS ORDERED: PIPERACILLIN/TAZOB 3.375 GM 3.375 GM in DEXTROSE 5%-WATER - 50 ML IVPB SCH (10:45)
[2022-10-01] MEDS ORDERED: VANCOMYCIN/WATER FOR INJ (PEG) 1 GM/200 ML BAG IVPB SCH (11:00)
[2022-10-01] MEDS: LOSARTAN POTASSIUM 50 MG TABLET PO SCH (11:37)
[2022-10-01] MEDS: cloNIDine HCL 0.1 MG TABLET PO SCH ×2 (11:37→21:26)
[2022-10-01] MEDS: ENOXAPARIN NA (PORCINE) 120 MG/0.8 ML DISP.SYRIN SQ SCH ×2 (11:38→21:27)
[2022-10-01] MEDS: NYSTATIN POWDER 100,000 UNITS/GM - 15 GM TOPICAL POWDER TP SCH ×2 (11:38→21:28)
[2022-10-01 13:07] LABS: BASO % 0.2 % (0-2.0); EOS % 0.6 % (0-4.5); HEMATOCRIT 37.1 % (35.4-49); HEMOGLOBIN 12.1 GM/dL (11.7-16.9); LYMPH % 8.2 % (8-40); MCH 29.5 pg (25.7-33.7); MCHC 32.6 g/dl (32.0-35.9); MEAN CELL VOLUME 90.6 fl (80-96); MEAN PLT VOLUME 7.5 fl (7.5-11.1); MONO % 7.2 % (3.8-10.2); NEUT % 83.8 % (42.8-82.8); PLATELET COUNT 195 10^3/uL (134-434); RBC 4.09 M/mm3 (4.00-5.60); RDW 15.3 % (11.9-15.9); WHITE BLOOD COUNT 9.7 K/mm3 (4.0-10.0)
[2022-10-01] MEDS: VITAMIN A 10,000 UNITS (3000 MCG) CAPSULE PO SCH (13:30)
[2022-10-01 13:36] LABS: CALCIUM 8.6 mg/dL (8.5-10.1)
[2022-10-01 13:37] LABS: BLOOD UREA NITROGEN 10.6 mg/dL (7-18); MAGNESIUM 2.1 mg/dL (1.8-2.4)
[2022-10-01 13:40] LABS: CREATININE 0.8 mg/dL (0.55-1.3); PHOSPHOROUS 2.8 mg/dL (2.5-4.9)
[2022-10-01 13:41] LABS: BILIRUBIN,TOTAL 0.7 mg/dL (0.2-1); TOT PROT 6.7 g/dl (6.4-8.2)
[2022-10-01] MEDS: MULTIVITAMINS THER W-MINERALS COMBO TABLET (FP) PO SCH (14:23)
[2022-10-01] MEDS: ASCORBIC ACID 500 MG TABLET (FP) PO SCH ×2 (14:23→21:30)
[2022-10-01] MEDS: ZINC SULFATE 220 MG CAPSULE (FP) PO SCH (14:23)
[2022-10-01] MEDS: CEFAZOLIN SODIUM 2 GM in DEXTROSE 5%-WATER 100 ML IVPB SCH ×2 (14:24→17:40)
[2022-10-01] MEDS: TAMSULOSIN HCL 0.4 MG CAP PO SCH (21:27)
[2022-10-01] MEDS: TIMOLOL 0.5% OPHTHALMIC SOL 5 ML BOTTLE OU SCH (21:29)
[2022-10-01] MEDS: LATANOPROST 0.005% OPHTH SOLN 2.5ML BOTTLE OU SCH (21:30)
[2022-10-01] MEDS ORDERED: ATORVASTATIN CA 10 MG TABLET (FP) PO SCH (22:00)
[2022-10-02] MEDS: CEFAZOLIN SODIUM 2 GM in DEXTROSE 5%-WATER 100 ML IVPB SCH ×3 (01:53→17:15)
[2022-10-02] MEDS: INSULIN SLIDING SCALE (NOVOLOG) 1 VIAL SQ SCH ×4 (06:02→21:37)
[2022-10-02] MEDS ORDERED: cloNIDine HCL 0.1 MG TABLET PO SCH (06:44)
[2022-10-02] MEDS: ENOXAPARIN NA (PORCINE) 120 MG/0.8 ML DISP.SYRIN SQ SCH ×2 (10:33→21:32)
[2022-10-02] MEDS: LOSARTAN POTASSIUM 50 MG TABLET PO SCH (10:33)
[2022-10-02] MEDS: ZINC SULFATE 220 MG CAPSULE (FP) PO SCH (10:33)
[2022-10-02] MEDS: ASCORBIC ACID 500 MG TABLET (FP) PO SCH ×2 (10:33→21:34)
[2022-10-02] MEDS: MULTIVITAMINS THER W-MINERALS COMBO TABLET (FP) PO SCH (10:33)
[2022-10-02 10:37] LABS: BASO % 0.5 % (0-2.0); EOS % 1.2 % (0-4.5); HEMATOCRIT 34.7 % (35.4-49); HEMOGLOBIN 11.6 GM/dL (11.7-16.9); LYMPH % 11.4 % (8-40); MCH 30.3 pg (25.7-33.7); MCHC 33.5 g/dl (32.0-35.9); MEAN CELL VOLUME 90.4 fl (80-96); MEAN PLT VOLUME 7.1 fl (7.5-11.1); MONO % 6.7 % (3.8-10.2); NEUT % 80.2 % (42.8-82.8); PLATELET COUNT 186 10^3/uL (134-434); RBC 3.84 M/mm3 (4.00-5.60); RDW 15.4 % (11.9-15.9); WHITE BLOOD COUNT 7.4 K/mm3 (4.0-10.0)
[2022-10-02 11:10] LABS: N-TERMINAL BNP 386.5 pg/ml (5-450)
[2022-10-02] MEDS: VITAMIN A 10,000 UNITS (3000 MCG) CAPSULE PO SCH (11:17)
[2022-10-02] MEDS: NYSTATIN POWDER 100,000 UNITS/GM - 15 GM TOPICAL POWDER TP SCH ×2 (11:17→21:33)
[2022-10-02] MEDS ORDERED: CYANOCOBALAMIN (VITAMIN B-12) 1000 MCG/1 ML VIAL IM ONE ×2 (11:40→16:00)
[2022-10-02] MEDS: cloNIDine HCL 0.1 MG TABLET PO SCH (21:29)
[2022-10-02] MEDS: ATORVASTATIN CA 10 MG TABLET (FP) PO SCH (21:31)
[2022-10-02] MEDS: TAMSULOSIN HCL 0.4 MG CAP PO SCH (21:31)
[2022-10-02] MEDS: TIMOLOL 0.5% OPHTHALMIC SOL 5 ML BOTTLE OU SCH (21:33)
[2022-10-02] MEDS: LATANOPROST 0.005% OPHTH SOLN 2.5ML BOTTLE OU SCH (21:34)
[2022-10-03] MEDS: CEFAZOLIN SODIUM 2 GM in DEXTROSE 5%-WATER 100 ML IVPB SCH ×3 (01:10→17:14)
[2022-10-03] MEDS: INSULIN SLIDING SCALE (NOVOLOG) 1 VIAL SQ SCH ×4 (06:01→23:22)
[2022-10-03] MEDS: LOSARTAN POTASSIUM 50 MG TABLET PO SCH (09:56)
[2022-10-03] MEDS: MULTIVITAMINS THER W-MINERALS COMBO TABLET (FP) PO SCH (09:56)
[2022-10-03] MEDS: ASCORBIC ACID 500 MG TABLET (FP) PO SCH ×2 (09:56→23:14)
[2022-10-03] MEDS: ZINC SULFATE 220 MG CAPSULE (FP) PO SCH (09:56)
[2022-10-03] MEDS: cloNIDine HCL 0.1 MG TABLET PO SCH ×2 (09:56→23:11)
[2022-10-03] MEDS: ENOXAPARIN NA (PORCINE) 120 MG/0.8 ML DISP.SYRIN SQ SCH ×2 (09:57→23:15)
[2022-10-03] MEDS: CYANOCOBALAMIN 1,000 MCG TABLET (FP) PO SCH (09:57)
[2022-10-03] MEDS: NYSTATIN POWDER 100,000 UNITS/GM - 15 GM TOPICAL POWDER TP SCH ×2 (09:57→23:18)
[2022-10-03] MEDS: VITAMIN A 10,000 UNITS (3000 MCG) CAPSULE PO SCH (09:57)
[2022-10-03 10:27] LABS: BASO % 0.5 % (0-2.0); HEMATOCRIT 34.1 % (35.4-49); HEMOGLOBIN 11.5 GM/dL (11.7-16.9); LYMPH % 16.2 % (8-40); MCH 30.3 pg (25.7-33.7); MCHC 33.6 g/dl (32.0-35.9); MEAN CELL VOLUME 90.1 fl (80-96); MEAN PLT VOLUME 7.4 fl (7.5-11.1); MONO % 7.1 % (3.8-10.2); NEUT % 74.2 % (42.8-82.8); PLATELET COUNT 208 10^3/uL (134-434); RBC 3.79 M/mm3 (4.00-5.60); RDW 15.4 % (11.9-15.9); WHITE BLOOD COUNT 7.4 K/mm3 (4.0-10.0)
[2022-10-03] MEDS: FUROSEMIDE 20 MG TABLET (FP) PO SCH (14:24)
[2022-10-03] MEDS ORDERED: MINERAL OIL ENEMA 133 ML ENEMA RC PRN (17:37)
[2022-10-03] MEDS: DOCUSATE SODIUM 100 MG CAPSULE (FP) PO SCH (23:13)
[2022-10-03] MEDS: ATORVASTATIN CA 10 MG TABLET (FP) PO SCH (23:14)
[2022-10-03] MEDS: TAMSULOSIN HCL 0.4 MG CAP PO SCH (23:14)
[2022-10-03] MEDS: PSYLLIUM 5.85 GM PACKET PO SCH (23:16)
[2022-10-03] MEDS: TIMOLOL 0.5% OPHTHALMIC SOL 5 ML BOTTLE OU SCH (23:17)
[2022-10-03] MEDS: AMMONIUM LACTATE 12% LOTION 225 GM BOTTLE TP SCH (23:17)
[2022-10-03] MEDS: LATANOPROST 0.005% OPHTH SOLN 2.5ML BOTTLE OU SCH (23:28)
[2022-10-04] MEDS: CEFAZOLIN SODIUM 2 GM in DEXTROSE 5%-WATER 100 ML IVPB SCH ×3 (02:22→17:04)
[2022-10-04] MEDS: DOCUSATE SODIUM 100 MG CAPSULE (FP) PO SCH ×3 (07:22→23:22)
[2022-10-04] MEDS: INSULIN SLIDING SCALE (NOVOLOG) 1 VIAL SQ SCH ×4 (07:23→23:24)
[2022-10-04 09:41] LABS: BASO % 0.3 % (0-2.0); EOS % 1.2 % (0-4.5); HEMATOCRIT 32.6 % (35.4-49); HEMOGLOBIN 10.8 GM/dL (11.7-16.9); LYMPH % 10.4 % (8-40); MCH 29.5 pg (25.7-33.7); MEAN CELL VOLUME 89.4 fl (80-96); MEAN PLT VOLUME 7.5 fl (7.5-11.1); MONO % 8.3 % (3.8-10.2); NEUT % 79.8 % (42.8-82.8); PLATELET COUNT 213 10^3/uL (134-434); RBC 3.65 M/mm3 (4.00-5.60); RDW 15.3 % (11.9-15.9); WHITE BLOOD COUNT 7.2 K/mm3 (4.0-10.0)
[2022-10-04 09:54] LABS: BLOOD UREA NITROGEN 15.7 mg/dL (7-18); CALCIUM 8.3 mg/dL (8.5-10.1)
[2022-10-04 09:58] LABS: CREATININE 0.8 mg/dL (0.55-1.3)
[2022-10-04] MEDS: COLLAGENASE CLOSTRIDIUM HIST. 30 GRAMS TUBE TP SCH (09:59)
[2022-10-04] MEDS: VITAMIN A 10,000 UNITS (3000 MCG) CAPSULE PO SCH (10:00)
[2022-10-04] MEDS: MULTIVITAMINS THER W-MINERALS COMBO TABLET (FP) PO SCH (10:02)
[2022-10-04] MEDS: cloNIDine HCL 0.1 MG TABLET PO SCH ×2 (10:03→23:21)
[2022-10-04] MEDS: ASCORBIC ACID 500 MG TABLET (FP) PO SCH ×2 (10:03→23:25)
[2022-10-04] MEDS: LOSARTAN POTASSIUM 50 MG TABLET PO SCH (10:04)
[2022-10-04] MEDS: ZINC SULFATE 220 MG CAPSULE (FP) PO SCH (10:04)
[2022-10-04] MEDS: PSYLLIUM 5.85 GM PACKET PO SCH ×2 (10:04→23:24)
[2022-10-04] MEDS: CYANOCOBALAMIN 1,000 MCG TABLET (FP) PO SCH (10:04)
[2022-10-04] MEDS: FUROSEMIDE 20 MG TABLET (FP) PO SCH (10:04)
[2022-10-04] MEDS: ENOXAPARIN NA (PORCINE) 120 MG/0.8 ML DISP.SYRIN SQ SCH ×2 (10:05→23:23)
[2022-10-04] MEDS: NYSTATIN POWDER 100,000 UNITS/GM - 15 GM TOPICAL POWDER TP SCH ×2 (10:07→23:26)
[2022-10-04] MEDS: AMMONIUM LACTATE 12% LOTION 225 GM BOTTLE TP SCH ×2 (10:08→23:26)
[2022-10-04] MEDS: TAMSULOSIN HCL 0.4 MG CAP PO SCH (23:22)
[2022-10-04] MEDS: ATORVASTATIN CA 10 MG TABLET (FP) PO SCH (23:23)
[2022-10-04] MEDS: LATANOPROST 0.005% OPHTH SOLN 2.5ML BOTTLE OU SCH (23:25)
[2022-10-04] MEDS: TIMOLOL 0.5% OPHTHALMIC SOL 5 ML BOTTLE OU SCH (23:25)
[2022-10-05] MEDS: COLLAGENASE CLOSTRIDIUM HIST. 30 GRAMS TUBE TP SCH ×2 (01:55→09:44)
[2022-10-05] MEDS: CEFAZOLIN SODIUM 2 GM in DEXTROSE 5%-WATER 100 ML IVPB SCH ×3 (02:48→17:10)
[2022-10-05] MEDS: DOCUSATE SODIUM 100 MG CAPSULE (FP) PO SCH ×3 (06:46→23:54)
[2022-10-05] MEDS: INSULIN SLIDING SCALE (NOVOLOG) 1 VIAL SQ SCH ×4 (08:32→23:57)
[2022-10-05] MEDS: PSYLLIUM 5.85 GM PACKET PO SCH ×2 (09:42→23:56)
[2022-10-05] MEDS: cloNIDine HCL 0.1 MG TABLET PO SCH ×2 (09:42→23:54)
[2022-10-05] MEDS: MULTIVITAMINS THER W-MINERALS COMBO TABLET (FP) PO SCH (09:43)
[2022-10-05] MEDS: ASCORBIC ACID 500 MG TABLET (FP) PO SCH ×2 (09:43→23:56)
[2022-10-05] MEDS: ENOXAPARIN NA (PORCINE) 120 MG/0.8 ML DISP.SYRIN SQ SCH ×2 (09:43→23:56)
[2022-10-05] MEDS: LOSARTAN POTASSIUM 50 MG TABLET PO SCH (09:43)
[2022-10-05] MEDS: CYANOCOBALAMIN 1,000 MCG TABLET (FP) PO SCH (09:43)
[2022-10-05] MEDS: ZINC SULFATE 220 MG CAPSULE (FP) PO SCH (09:43)
[2022-10-05] MEDS: FUROSEMIDE 20 MG TABLET (FP) PO SCH (09:43)
[2022-10-05] MEDS: NYSTATIN POWDER 100,000 UNITS/GM - 15 GM TOPICAL POWDER TP SCH ×2 (09:44→23:57)
[2022-10-05] MEDS: VITAMIN A 10,000 UNITS (3000 MCG) CAPSULE PO SCH (09:44)
[2022-10-05] MEDS: AMMONIUM LACTATE 12% LOTION 225 GM BOTTLE TP SCH ×2 (09:45→23:57)
[2022-10-05 10:38] LABS: BASO % 0.3 % (0-2.0); EOS % 0.4 % (0-4.5); HEMATOCRIT 30.9 % (35.4-49); HEMOGLOBIN 10.4 GM/dL (11.7-16.9); LYMPH % 8.6 % (8-40); MCH 29.9 pg (25.7-33.7); MCHC 33.7 g/dl (32.0-35.9); MEAN CELL VOLUME 88.9 fl (80-96); MEAN PLT VOLUME 7.4 fl (7.5-11.1); MONO % 7.4 % (3.8-10.2); NEUT % 83.3 % (42.8-82.8); PLATELET COUNT 204 10^3/uL (134-434); RBC 3.47 M/mm3 (4.00-5.60); RDW 15.1 % (11.9-15.9)
[2022-10-05 11:45] LABS: CALCIUM 8.1 mg/dL (8.5-10.1)
[2022-10-05 11:46] LABS: BLOOD UREA NITROGEN 15.6 mg/dL (7-18)
[2022-10-05 11:49] LABS: CREATININE 0.9 mg/dL (0.55-1.3)
[2022-10-05] MEDS ORDERED: ACETAMINOPHEN 325 MG TABLET (FP) PO PRN (16:14)
[2022-10-05] MEDS ORDERED: IRON SUCROSE INJECTION 300 MG in SODIUM CHLORIDE 235 ML IVPB ONE (19:00)
[2022-10-05] MEDS: TAMSULOSIN HCL 0.4 MG CAP PO SCH (23:55)
[2022-10-05] MEDS: ATORVASTATIN CA 10 MG TABLET (FP) PO SCH (23:55)
[2022-10-05] MEDS: TIMOLOL 0.5% OPHTHALMIC SOL 5 ML BOTTLE OU SCH (23:58)
[2022-10-05] MEDS: LATANOPROST 0.005% OPHTH SOLN 2.5ML BOTTLE OU SCH (23:58)
[2022-10-06] MEDS: CEFAZOLIN SODIUM 2 GM in DEXTROSE 5%-WATER 100 ML IVPB SCH ×3 (02:23→17:06)
[2022-10-06] MEDS: DOCUSATE SODIUM 100 MG CAPSULE (FP) PO SCH ×3 (06:57→21:43)
[2022-10-06] MEDS: INSULIN SLIDING SCALE (NOVOLOG) 1 VIAL SQ SCH ×4 (06:58→21:56)
[2022-10-06] MEDS: ENOXAPARIN NA (PORCINE) 120 MG/0.8 ML DISP.SYRIN SQ SCH ×2 (09:57→21:44)
[2022-10-06] MEDS: cloNIDine HCL 0.1 MG TABLET PO SCH ×2 (09:58→21:43)
[2022-10-06] MEDS: FUROSEMIDE 20 MG TABLET (FP) PO SCH (09:58)
[2022-10-06] MEDS: ZINC SULFATE 220 MG CAPSULE (FP) PO SCH (09:58)
[2022-10-06] MEDS: MULTIVITAMINS THER W-MINERALS COMBO TABLET (FP) PO SCH (09:59)
[2022-10-06] MEDS: CYANOCOBALAMIN 1,000 MCG TABLET (FP) PO SCH (09:59)
[2022-10-06] MEDS: LOSARTAN POTASSIUM 50 MG TABLET PO SCH (09:59)
[2022-10-06] MEDS: VITAMIN A 10,000 UNITS (3000 MCG) CAPSULE PO SCH (10:00)
[2022-10-06] MEDS: AMMONIUM LACTATE 12% LOTION 225 GM BOTTLE TP SCH ×2 (10:01→21:44)
[2022-10-06] MEDS: PSYLLIUM 5.85 GM PACKET PO SCH ×2 (10:01→21:43)
[2022-10-06] MEDS: NYSTATIN POWDER 100,000 UNITS/GM - 15 GM TOPICAL POWDER TP SCH ×2 (10:01→21:44)
[2022-10-06] MEDS: COLLAGENASE CLOSTRIDIUM HIST. 30 GRAMS TUBE TP SCH (10:01)
[2022-10-06 10:21] LABS: BASO % 0.8 % (0-2.0); EOS % 0.6 % (0-4.5); HEMATOCRIT 33.4 % (35.4-49); HEMOGLOBIN 11.1 GM/dL (11.7-16.9); LYMPH % 8.2 % (8-40); MCH 29.6 pg (25.7-33.7); MCHC 33.1 g/dl (32.0-35.9); MEAN CELL VOLUME 89.7 fl (80-96); MEAN PLT VOLUME 7.5 fl (7.5-11.1); MONO % 4.8 % (3.8-10.2); NEUT % 85.6 % (42.8-82.8); PLATELET COUNT 194 10^3/uL (134-434); RBC 3.73 M/mm3 (4.00-5.60); RDW 15.2 % (11.9-15.9); WHITE BLOOD COUNT 7.5 K/mm3 (4.0-10.0)
[2022-10-06] MEDS: ASCORBIC ACID 500 MG TABLET (FP) PO SCH ×2 (11:13→21:43)
[2022-10-06 11:15] LABS: CALCIUM 8.3 mg/dL (8.5-10.1)
[2022-10-06 11:16] LABS: BLOOD UREA NITROGEN 17.5 mg/dL (7-18)
[2022-10-06 11:19] LABS: CREATININE 0.9 mg/dL (0.55-1.3)
[2022-10-06] MEDS: TAMSULOSIN HCL 0.4 MG CAP PO SCH (21:43)
[2022-10-06] MEDS: ATORVASTATIN CA 10 MG TABLET (FP) PO SCH (21:43)
[2022-10-06] MEDS: TIMOLOL 0.5% OPHTHALMIC SOL 5 ML BOTTLE OU SCH (21:45)
[2022-10-06] MEDS: LATANOPROST 0.005% OPHTH SOLN 2.5ML BOTTLE OU SCH (21:45)
[2022-10-07] MEDS: CEFAZOLIN SODIUM 2 GM in DEXTROSE 5%-WATER 100 ML IVPB SCH ×3 (02:18→17:37)
[2022-10-07] MEDS: DOCUSATE SODIUM 100 MG CAPSULE (FP) PO SCH ×3 (06:05→22:10)
[2022-10-07] MEDS: INSULIN SLIDING SCALE (NOVOLOG) 1 VIAL SQ SCH ×4 (06:39→22:29)
[2022-10-07] MEDS: ENOXAPARIN NA (PORCINE) 120 MG/0.8 ML DISP.SYRIN SQ SCH (10:27)
[2022-10-07] MEDS: PSYLLIUM 5.85 GM PACKET PO SCH ×2 (10:28→22:11)
[2022-10-07] MEDS: FUROSEMIDE 20 MG TABLET (FP) PO SCH (10:28)
[2022-10-07] MEDS: ZINC SULFATE 220 MG CAPSULE (FP) PO SCH (10:28)
[2022-10-07] MEDS: LOSARTAN POTASSIUM 50 MG TABLET PO SCH (10:28)
[2022-10-07] MEDS: MULTIVITAMINS THER W-MINERALS COMBO TABLET (FP) PO SCH (10:28)
[2022-10-07] MEDS: cloNIDine HCL 0.1 MG TABLET PO SCH ×2 (10:28→22:08)
[2022-10-07] MEDS: AMMONIUM LACTATE 12% LOTION 225 GM BOTTLE TP SCH ×2 (10:29→22:13)
[2022-10-07] MEDS: NYSTATIN POWDER 100,000 UNITS/GM - 15 GM TOPICAL POWDER TP SCH ×2 (10:29→22:13)
[2022-10-07] MEDS: CYANOCOBALAMIN 1,000 MCG TABLET (FP) PO SCH (10:29)
[2022-10-07] MEDS: ASCORBIC ACID 500 MG TABLET (FP) PO SCH ×2 (10:29→22:08)
[2022-10-07] MEDS: VITAMIN A 10,000 UNITS (3000 MCG) CAPSULE PO SCH (10:29)
[2022-10-07] MEDS: COLLAGENASE CLOSTRIDIUM HIST. 30 GRAMS TUBE TP SCH (10:30)
[2022-10-07 11:00] LABS: BASO % 0.4 % (0-2.0); EOS % 1.3 % (0-4.5); HEMATOCRIT 32.6 % (35.4-49); HEMOGLOBIN 10.7 GM/dL (11.7-16.9); LYMPH % 10.4 % (8-40); MCH 29.3 pg (25.7-33.7); MCHC 32.9 g/dl (32.0-35.9); MEAN CELL VOLUME 89.2 fl (80-96); MEAN PLT VOLUME 7.6 fl (7.5-11.1); MONO % 8.6 % (3.8-10.2); NEUT % 79.3 % (42.8-82.8); PLATELET COUNT 244 10^3/uL (134-434); RBC 3.66 M/mm3 (4.00-5.60); RDW 15.5 % (11.9-15.9); WHITE BLOOD COUNT 8.1 K/mm3 (4.0-10.0)
[2022-10-07 11:34] LABS: CALCIUM 8.4 mg/dL (8.5-10.1)
[2022-10-07 11:35] LABS: BLOOD UREA NITROGEN 19.8 mg/dL (7-18)
[2022-10-07 11:38] LABS: CREATININE 0.8 mg/dL (0.55-1.3)
[2022-10-07] MEDS ORDERED: OLANZapine 2.5 MG TABLET PO SCH (22:00)
[2022-10-07] MEDS: APIXABAN 5 MG TABLET PO SCH (22:10)
[2022-10-07] MEDS: TAMSULOSIN HCL 0.4 MG CAP PO SCH (22:10)
[2022-10-07] MEDS: ATORVASTATIN CA 10 MG TABLET (FP) PO SCH (22:10)
[2022-10-07] MEDS: LATANOPROST 0.005% OPHTH SOLN 2.5ML BOTTLE OU SCH (22:13)
[2022-10-07] MEDS: TIMOLOL 0.5% OPHTHALMIC SOL 5 ML BOTTLE OU SCH (22:13)
[2022-10-08] MEDS: CEFAZOLIN SODIUM 2 GM in DEXTROSE 5%-WATER 100 ML IVPB SCH (02:26)
[2022-10-08] MEDS: DOCUSATE SODIUM 100 MG CAPSULE (FP) PO SCH ×2 (05:21→14:24)
[2022-10-08] MEDS: INSULIN SLIDING SCALE (NOVOLOG) 1 VIAL SQ SCH ×2 (07:01→12:55)
[2022-10-08 07:09] VITALS: RESP 20
[2022-10-08] MEDS: CYANOCOBALAMIN 1,000 MCG TABLET (FP) PO SCH (09:26)
[2022-10-08] MEDS: cloNIDine HCL 0.1 MG TABLET PO SCH (09:27)
[2022-10-08] MEDS: ZINC SULFATE 220 MG CAPSULE (FP) PO SCH (09:27)
[2022-10-08] MEDS: ASCORBIC ACID 500 MG TABLET (FP) PO SCH (09:28)
[2022-10-08] MEDS: AMMONIUM LACTATE 12% LOTION 225 GM BOTTLE TP SCH (09:28)
[2022-10-08] MEDS: MULTIVITAMINS THER W-MINERALS COMBO TABLET (FP) PO SCH (09:28)
[2022-10-08] MEDS: LOSARTAN POTASSIUM 50 MG TABLET PO SCH (09:28)
[2022-10-08] MEDS: FUROSEMIDE 20 MG TABLET (FP) PO SCH (09:28)
[2022-10-08] MEDS: APIXABAN 5 MG TABLET PO SCH (09:29)
[2022-10-08] MEDS: NYSTATIN POWDER 100,000 UNITS/GM - 15 GM TOPICAL POWDER TP SCH (09:29)
[2022-10-08] MEDS: PSYLLIUM 5.85 GM PACKET PO SCH (09:29)
[2022-10-08] MEDS: COLLAGENASE CLOSTRIDIUM HIST. 30 GRAMS TUBE TP SCH (09:29)
[2022-10-08] MEDS: VITAMIN A 10,000 UNITS (3000 MCG) CAPSULE PO SCH (09:30)
[2022-10-08] MEDS ORDERED: CEPHALEXIN MONOHYDRATE 500 MG CAPSULE (UD) PO SCH (10:00)
[2022-10-08 10:15] LABS: BASO % 0.4 % (0-2.0); EOS % 1.6 % (0-4.5); HEMATOCRIT 32.6 % (35.4-49); HEMOGLOBIN 10.8 GM/dL (11.7-16.9); LYMPH % 9.6 % (8-40); MCH 29.5 pg (25.7-33.7); MEAN CELL VOLUME 89.4 fl (80-96); MEAN PLT VOLUME 7.3 fl (7.5-11.1); MONO % 5.5 % (3.8-10.2); NEUT % 82.9 % (42.8-82.8); PLATELET COUNT 271 10^3/uL (134-434); RBC 3.65 M/mm3 (4.00-5.60); RDW 15.3 % (11.9-15.9); WHITE BLOOD COUNT 7.6 K/mm3 (4.0-10.0)
[2022-10-08 10:28] LABS: CALCIUM 8.3 mg/dL (8.5-10.1)
[2022-10-08 10:29] LABS: BLOOD UREA NITROGEN 13.8 mg/dL (7-18)
[2022-10-08 10:32] LABS: CREATININE 0.7 mg/dL (0.55-1.3)
[2022-10-08 15:52] VITALS: BP 142/63; PULSE 78; TEMP 99.2
== END 2022-10-08 16:51 | disposition home health service (06) | DRG 300 ==
LOC: JER 11:44 → JERBED 18:14 → J8W 10-01 08:19
PROVIDERS: ADMIT Internal Medicine; ATTEND Internal Medicine
DX: I82.411 Acute embolism and thrombosis of right femoral vein (principal); F20.89 Other schizophrenia; L03.115 Cellulitis of right lower limb; L97.818 Non-pressure chronic ulcer of other part of right lower leg with other specified severity; I82.431 Acute embolism and thrombosis of right popliteal vein; I10 Essential (primary) hypertension; E78.5 Hyperlipidemia, unspecified; R73.03 Prediabetes; B96.89 Other specified bacterial agents as the cause of diseases classified elsewhere; B96.5 Pseudomonas (aeruginosa) (mallei) (pseudomallei) as the cause of diseases classified elsewhere; B96.4 Proteus (mirabilis) (morganii) as the cause of diseases classified elsewhere; B95.2 Enterococcus as the cause of diseases classified elsewhere; I83.018 Varicose veins of right lower extremity with ulcer other part of lower leg; E66.9 Obesity, unspecified; Z68.38 Body mass index [BMI] 38.0-38.9, adult; B37.2 Candidiasis of skin and nail; E53.8 Deficiency of other specified B group vitamins; H40.9 Unspecified glaucoma; F41.9 Anxiety disorder, unspecified; S81.801A Unspecified open wound, right lower leg, initial encounter; X58.XXXA Exposure to other specified factors, initial encounter; Y93.9 Activity, unspecified; Y92.89 Other specified places as the place of occurrence of the external cause
CPT/HCPCS: 36415; 71045-TC-FY; 73590-TC-RT-FY; 73630-TC-RT-FY; 80048; 80053; 80061; 82607; 82728; 82962; 83036; 83540; 83550; 83735; 83880; 84100; 84443; 85025; 85379; 85651; 86140; 87040; 87070; 87076; 87186; 87205; 93005; 93010; 93306-TC; 93971-TC; 97116-GP; 97161-GP; 99285-25; C9803-CS; J1756; U0003; U0005

== ENCOUNTER 2022-12-21 09:38 | Emergency (ER) | payer OTHER, BC ==
[2022-12-21 10:09] VITALS: TEMP 97.6; BMI 38.8
[2022-12-21 11:38] LABS: BASO % 0.4 % (0-2.0); HEMATOCRIT 34.2 % (35.4-49); HEMOGLOBIN 11.5 GM/dL (11.7-16.9); LYMPH % 14.1 % (8-40); MCH 31.4 pg (25.7-33.7); MCHC 33.5 g/dl (32.0-35.9); MEAN CELL VOLUME 93.6 fl (80-96); MEAN PLT VOLUME 7.1 fl (7.5-11.1); MONO % 7.6 % (3.8-10.2); NEUT % 75.9 % (42.8-82.8); PLATELET COUNT 185 10^3/uL (134-434); RBC 3.65 M/mm3 (4.00-5.60); RDW 18.2 % (11.9-15.9); WHITE BLOOD COUNT 7.9 K/mm3 (4.0-10.0)
[2022-12-21 11:56] LABS: CHLORIDE 106 mmol/L (98-107); SODIUM 137 mmol/L (136-145)
[2022-12-21 11:58] LABS: ANION GAP 5 MMOL/L (8-16); CALCIUM 8.4 mg/dL (8.5-10.1); CO2 26 mmol/L (21-32); GLUCOSE,RANDOM 94 mg/dL (74-106)
[2022-12-21 11:59] LABS: ALBUMIN 3.2 g/dl (3.4-5.0); BLOOD UREA NITROGEN 17.7 mg/dL (7-18)
[2022-12-21 12:01] LABS: SGPT/ALT 13 U/L (13-61)
[2022-12-21 12:02] LABS: CREATININE 0.9 mg/dL (0.55-1.3); SGOT/AST 14 U/L (15-37)
[2022-12-21 12:03] LABS: BILIRUBIN,TOTAL 0.4 mg/dL (0.2-1); TOT PROT 6.7 g/dl (6.4-8.2)
[2022-12-21 12:04] LABS: ALK PHOS 93 U/L (45-117)
[2022-12-21 12:29] VITALS: BP 170/84; PULSE 65; RESP 20
== END 2022-12-21 13:08 | disposition home or self-care (01) ==
LOC: JER 09:38
DX: L03.115 Cellulitis of right lower limb (principal)
CPT/HCPCS: 36415; 80053; 80307; 85025; 93005; 93010; 99284-25; C9803-CS; U0003; U0005

== ENCOUNTER 2023-08-16 09:32 | Observation (INO) | payer OTHER, BC ==
[2023-08-16 10:39] VITALS: TEMP 97.9; BMI 41.1
[2023-08-16 11:46] LABS: HEMATOCRIT 34.5 % (35.4-49); HEMOGLOBIN 11.6 GM/dL (11.7-16.9); MCH 30.8 pg (25.7-33.7); MCHC 33.7 g/dl (32.0-35.9); MEAN CELL VOLUME 91.5 fl (80-96); MEAN PLT VOLUME 7.2 fl (7.5-11.1); PLATELET COUNT 178 10^3/uL (134-434); RBC 3.77 M/mm3 (4.00-5.60); RDW 16.5 % (11.9-15.9); WHITE BLOOD COUNT 6.2 K/mm3 (4.0-10.0)
[2023-08-16 12:02] LABS: POTASSIUM 4.6 mmol/L (3.5-5.1)
[2023-08-16 12:04] LABS: CALCIUM 8.4 mg/dL (8.5-10.1)
[2023-08-16 12:05] LABS: ALBUMIN 3.2 g/dl (3.4-5.0)
[2023-08-16 12:09] LABS: BILIRUBIN,TOTAL 0.4 mg/dL (0.2-1); TOT PROT 6.7 g/dl (6.4-8.2)
[2023-08-16 14:17] VITALS: BP 198/79; PULSE 72; RESP 16
[2023-08-16 14:30] LABS: URINE APPEARANCE CLEAR; URINE BILIRUBIN NEGATIVE (NEGATIVE); URINE COLOR YELLOW; URINE GLUCOSE (UA) NEGATIVE (NEGATIVE); URINE KETONE NEGATIVE (NEGATIVE); URINE LEUK ESTERASE NEGATIVE (NEGATIVE); URINE NITRITE NEGATIVE (NEGATIVE); URINE PROTEIN NEGATIVE (NEGATIVE); URINE UROBILINOGEN 0.2 mg/dL (0.2-1.0)
[2023-08-16] MEDS ORDERED: CYANOCOBALAMIN 1,000 MCG TABLET (FP) PO SCH (14:30)
[2023-08-16] MEDS ORDERED: TIMOLOL 0.5% OPHTHALMIC SOL 5 ML BOTTLE OU SCH (14:30)
[2023-08-16] MEDS ORDERED: LATANOPROST 0.005% OPHTH SOLN 2.5ML BOTTLE OU SCH (14:30)
[2023-08-16] MEDS ORDERED: amLODIPine BESYLATE 10 MG TABLET (FP) PO ONE (14:43)
[2023-08-16] MEDS ORDERED: PANTOPRAZOLE 40 MG TABLET PO SCH (14:45)
[2023-08-16] MEDS ORDERED: INSULIN SLIDING SCALE (NOVOLOG) 1 VIAL SQ SCH (16:30)
[2023-08-16] MEDS ORDERED: OLANZapine 2.5 MG TABLET PO SCH (22:00)
[2023-08-16] MEDS ORDERED: ATORVASTATIN CA 20 MG TABLET (FP) PO SCH (22:00)
[2023-08-16] MEDS ORDERED: PSYLLIUM 5.85 GM PACKET PO SCH (22:00)
[2023-08-16] MEDS ORDERED: APIXABAN 5 MG TABLET PO SCH (22:00)
[2023-08-16] MEDS ORDERED: TAMSULOSIN HCL 0.4 MG CAP PO SCH (22:00)
[2023-08-17] MEDS ORDERED: LOSARTAN POTASSIUM 50 MG TABLET PO SCH (10:00)
== END 2023-08-16 15:05 | disposition left against medical advice (07) ==
LOC: JER 09:32 → JERBED 13:41
PROVIDERS: ADMIT Internal Medicine; ATTEND Internal Medicine
DX: M62.81 Muscle weakness (generalized) (principal); F41.9 Anxiety disorder, unspecified; R73.03 Prediabetes; I73.9 Peripheral vascular disease, unspecified; I10 Essential (primary) hypertension; E78.5 Hyperlipidemia, unspecified; D64.9 Anemia, unspecified; N39.9 Disorder of urinary system, unspecified; Z88.8 Allergy status to other drugs, medicaments and biological substances
CPT/HCPCS: 36415; 70450-TC; 71045-TC-FY; 72125-TC; 73030-TC-RT-FY; 80053; 81003; 83735; 84484; 85027; 87086; 93005; 93010; 99285-25; G0378

== ENCOUNTER 2023-12-20 15:53 | Inpatient (IN) | payer OTHER, BC ==
[2023-12-20 16:30] VITALS: BMI 26.6
[2023-12-20 16:53] LABS: BASO % 0.6 % (0-2.0); HEMATOCRIT 41.4 % (35.4-49); HEMOGLOBIN 13.6 GM/dL (11.7-16.9); LYMPH % 6.6 % (8-40); MCH 31.2 pg (25.7-33.7); MCHC 32.8 g/dl (32.0-35.9); MEAN PLT VOLUME 7.3 fl (7.5-11.1); MONO % 5.8 % (3.8-10.2); PLATELET COUNT 197 10^3/uL (134-434); RBC 4.36 M/mm3 (4.00-5.60); RDW 15.6 % (11.9-15.9); WHITE BLOOD COUNT 14.6 K/mm3 (4.0-10.0)
[2023-12-20 17:13] LABS: EPI CELLS 26 /uL (0-25.1); HYALINE CASTS 16 /uL (0-3.1); PH,URINE 5.5 (5.0-8.0); URINE APPEARANCE CLOUDY; URINE BACTERIA 16 /uL (0-1359); URINE BILIRUBIN NEGATIVE (NEGATIVE); URINE COLOR YELLOW; URINE GLUCOSE (UA) NEGATIVE (NEGATIVE); URINE KETONE TRACE (NEGATIVE); URINE LEUK ESTERASE NEGATIVE (NEGATIVE); URINE NITRITE NEGATIVE (NEGATIVE); URINE PROTEIN 1+ (NEGATIVE); URINE RBC 35 /uL (0-23.9); URINE WBC 52 /uL (0-25.8)
[2023-12-20 17:13] LABS: POTASSIUM 4.1 mmol/L (3.5-5.1)
[2023-12-20 17:15] LABS: ALBUMIN 3.7 g/dl (3.4-5.0); BLOOD UREA NITROGEN 34.8 mg/dL (7-18); CALCIUM 8.8 mg/dL (8.5-10.1); MAGNESIUM 2.4 mg/dL (1.8-2.4)
[2023-12-20 17:18] LABS: ACTIVATED PTT 31.8 SECONDS (25.2-36.5); CREATININE 1.5 mg/dL (0.55-1.3); INR 1.31 (0.83-1.09); PROTHROMBIN TIME (PATIENT) 15.2 SEC (9.7-13.0)
[2023-12-20 17:20] LABS: TOT PROT 7.6 g/dl (6.4-8.2)
[2023-12-20] MEDS: SODIUM CHLORIDE 0.9% 500 ML INFUS.BAG IV ONE (19:09)
[2023-12-20] MEDS: INSULIN ASPART SLIDING SCALE (NOVOLOG) 1 VIAL SQ SCH (21:19)
[2023-12-20] MEDS: LATANOPROST 0.005% OPHTH SOLN 2.5ML BOTTLE OU SCH (21:32)
[2023-12-20] MEDS: PSYLLIUM 5.85 GM PACKET PO SCH (21:32)
[2023-12-20] MEDS ORDERED: ATORVASTATIN CA 20 MG TABLET (FP) ONE (21:50)
[2023-12-20] MEDS ORDERED: APIXABAN 5 MG TABLET ONE (21:50)
[2023-12-20] MEDS ORDERED: PANTOPRAZOLE 40 MG TABLET PO ONE (21:50)
[2023-12-20] MEDS ORDERED: cloNIDine HCL 0.1 MG TABLET ONE (21:50)
[2023-12-20] MEDS ORDERED: TAMSULOSIN HCL 0.4 MG CAP ONE (21:51)
[2023-12-20] MEDS: TAMSULOSIN HCL 0.4 MG CAP PO SCH (22:37)
[2023-12-20] MEDS: cloNIDine HCL 0.1 MG TABLET PO SCH (22:37)
[2023-12-20] MEDS: APIXABAN 5 MG TABLET PO SCH (22:37)
[2023-12-20] MEDS: ATORVASTATIN CA 20 MG TABLET (FP) PO SCH (22:37)
[2023-12-20] MEDS: TIMOLOL 0.5% OPHTHALMIC SOL 5 ML BOTTLE OU SCH (22:37)
[2023-12-20] MEDS: PANTOPRAZOLE 40 MG TABLET PO SCH (22:37)
[2023-12-20] MEDS: OLANZapine 2.5 MG TABLET PO SCH (22:38)
[2023-12-21] MEDS: D5-1/2NS+10 MEQ KCL - 10 MEQ/1,000 ML INFUS.BAG IV SCH (00:37)
[2023-12-21 07:24] LABS: BASO % 0.2 % (0-2.0); EOS % 0.6 % (0-4.5); HEMATOCRIT 34.8 % (35.4-49); HEMOGLOBIN 11.4 GM/dL (11.7-16.9); LYMPH % 8.9 % (8-40); MCH 31.5 pg (25.7-33.7); MCHC 32.9 g/dl (32.0-35.9); MEAN CELL VOLUME 95.7 fl (80-96); MEAN PLT VOLUME 7.3 fl (7.5-11.1); MONO % 6.9 % (3.8-10.2); NEUT % 83.4 % (42.8-82.8); PLATELET COUNT 167 10^3/uL (134-434); RBC 3.64 M/mm3 (4.00-5.60); RDW 15.6 % (11.9-15.9); WHITE BLOOD COUNT 10.3 K/mm3 (4.0-10.0)
[2023-12-21 07:41] LABS: POTASSIUM 4.3 mmol/L (3.5-5.1)
[2023-12-21 07:43] LABS: BLOOD UREA NITROGEN 33.7 mg/dL (7-18); CALCIUM 7.7 mg/dL (8.5-10.1)
[2023-12-21 07:47] LABS: CREATININE 1.2 mg/dL (0.55-1.3)
[2023-12-21] MEDS ORDERED: LOSARTAN POTASSIUM 50 MG TABLET ONE (10:16)
[2023-12-21] MEDS ORDERED: cloNIDine HCL 0.1 MG TABLET ONE (10:16)
[2023-12-21] MEDS ORDERED: PANTOPRAZOLE 40 MG TABLET PO ONE (10:16)
[2023-12-21] MEDS ORDERED: APIXABAN 5 MG TABLET ONE (10:16)
[2023-12-21] MEDS ORDERED: CALCIUM GLUC IN NACL, ISO-OSM 1 GM/50 ML BAG IVPB ONE (10:17)
[2023-12-21] MEDS: CALCIUM GLUC IN NACL, ISO-OSM 1 GM/50 ML BAG IVPB ONE (10:30)
[2023-12-21] MEDS: LOSARTAN POTASSIUM 50 MG TABLET PO SCH (10:40)
[2023-12-21] MEDS: CYANOCOBALAMIN 1,000 MCG TABLET (FP) PO SCH (10:40)
[2023-12-21] MEDS: LACTATED RINGERS SOLUTION 1,000 ML/1,000 ML INFUS.BAG IV SCH (14:30)
[2023-12-22] MEDS: LACTATED RINGERS SOLUTION 1,000 ML/1,000 ML INFUS.BAG IV SCH (06:40)
[2023-12-22 08:52] LABS: BASO % 0.3 % (0-2.0); EOS % 2.8 % (0-4.5); HEMATOCRIT 32.2 % (35.4-49); HEMOGLOBIN 10.7 GM/dL (11.7-16.9); LYMPH % 16.3 % (8-40); MCH 31.5 pg (25.7-33.7); MCHC 33.1 g/dl (32.0-35.9); MEAN CELL VOLUME 95.3 fl (80-96); MEAN PLT VOLUME 7.7 fl (7.5-11.1); MONO % 8.9 % (3.8-10.2); NEUT % 71.7 % (42.8-82.8); PLATELET COUNT 156 10^3/uL (134-434); RBC 3.38 M/mm3 (4.00-5.60); RDW 15.4 % (11.9-15.9); WHITE BLOOD COUNT 7.6 K/mm3 (4.0-10.0)
[2023-12-22 09:05] LABS: POTASSIUM 3.7 mmol/L (3.5-5.1)
[2023-12-22 09:07] LABS: BLOOD UREA NITROGEN 34.6 mg/dL (7-18); CALCIUM 7.9 mg/dL (8.5-10.1)
[2023-12-22] MEDS: amLODIPine BESYLATE 2.5 MG TABLET (FP) PO SCH (19:17)
[2023-12-22] MEDS: LOSARTAN POTASSIUM 50 MG TABLET PO SCH (19:17)
[2023-12-22] MEDS: LATANOPROST 0.005% OPHTH SOLN 2.5ML BOTTLE OU SCH (21:13)
[2023-12-23] MEDS ORDERED: cloNIDine HCL 0.1 MG TABLET PO SCH (10:00)
[2023-12-23 11:14] LABS: BASO % 0.4 % (0-2.0); EOS % 1.6 % (0-4.5); HEMATOCRIT 33.1 % (35.4-49); HEMOGLOBIN 11.1 GM/dL (11.7-16.9); MCH 31.5 pg (25.7-33.7); MCHC 33.5 g/dl (32.0-35.9); MEAN CELL VOLUME 94.1 fl (80-96); MONO % 9.1 % (3.8-10.2); NEUT % 76.9 % (42.8-82.8); PLATELET COUNT 164 10^3/uL (134-434); RBC 3.52 M/mm3 (4.00-5.60); RDW 15.2 % (11.9-15.9); WHITE BLOOD COUNT 7.5 K/mm3 (4.0-10.0)
[2023-12-23 11:32] LABS: POTASSIUM 3.5 mmol/L (3.5-5.1)
[2023-12-23 11:34] LABS: BLOOD UREA NITROGEN 17.3 mg/dL (7-18)
[2023-12-23 11:38] LABS: CREATININE 0.8 mg/dL (0.55-1.3)
[2023-12-23] MEDS: IRON SUCROSE INJECTION 300 MG in SODIUM CHLORIDE 235 ML IVPB ONE (17:36)
[2023-12-24 08:03] LABS: BASO % 0.4 % (0-2.0); EOS % 1.4 % (0-4.5); HEMATOCRIT 32.2 % (35.4-49); LYMPH % 12.2 % (8-40); MCH 31.9 pg (25.7-33.7); MCHC 34.1 g/dl (32.0-35.9); MEAN CELL VOLUME 93.4 fl (80-96); MONO % 10.9 % (3.8-10.2); NEUT % 75.1 % (42.8-82.8); PLATELET COUNT 157 10^3/uL (134-434); RBC 3.45 M/mm3 (4.00-5.60); RDW 14.7 % (11.9-15.9); WHITE BLOOD COUNT 7.2 K/mm3 (4.0-10.0)
[2023-12-24 08:24] LABS: POTASSIUM 3.6 mmol/L (3.5-5.1)
[2023-12-24 08:25] LABS: CALCIUM 8.1 mg/dL (8.5-10.1)
[2023-12-24 08:26] LABS: BLOOD UREA NITROGEN 12.4 mg/dL (7-18)
[2023-12-24 08:29] LABS: CREATININE 0.8 mg/dL (0.55-1.3)
[2023-12-24] MEDS: amLODIPine BESYLATE 2.5 MG TABLET (FP) PO ONE (12:49)
[2023-12-25 08:10] LABS: BASO % 0.5 % (0-2.0); HEMATOCRIT 33.1 % (35.4-49); HEMOGLOBIN 11.1 GM/dL (11.7-16.9); LYMPH % 9.2 % (8-40); MCH 31.6 pg (25.7-33.7); MCHC 33.6 g/dl (32.0-35.9); MEAN CELL VOLUME 94.1 fl (80-96); MEAN PLT VOLUME 7.2 fl (7.5-11.1); MONO % 10.5 % (3.8-10.2); NEUT % 78.8 % (42.8-82.8); PLATELET COUNT 173 10^3/uL (134-434); RBC 3.52 M/mm3 (4.00-5.60); RDW 15.2 % (11.9-15.9); WHITE BLOOD COUNT 8.7 K/mm3 (4.0-10.0)
[2023-12-25 08:19] LABS: POTASSIUM 3.8 mmol/L (3.5-5.1)
[2023-12-25 08:28] LABS: BLOOD UREA NITROGEN 10.8 mg/dL (7-18)
[2023-12-25 08:31] LABS: CREATININE 0.8 mg/dL (0.55-1.3)
[2023-12-25] MEDS: amLODIPine BESYLATE 5 MG TABLET (FP) PO SCH (10:15)
[2023-12-25] MEDS ORDERED: INSULIN (NOVOLOG) ASPART 100 UNITS/ML 10ML VIAL ONE (11:18)
[2023-12-25] MEDS: ACETAMINOPHEN 325 MG TABLET (FP) PO PRN (15:00)
[2023-12-25 22:37] VITALS: RESP 18
[2023-12-26 09:39] VITALS: BP 134/65; PULSE 108; TEMP 99.1
== END 2023-12-26 09:00 | DRG 683 ==
LOC: JER 15:53 → JERBED 18:04 → J6S 12-21 03:11 → JERBED 12-21 05:14 → J7W 12-21 11:07
PROVIDERS: ADMIT Internal Medicine; ATTEND Internal Medicine
DX: N17.9 Acute kidney failure, unspecified (principal); I24.89 Other forms of acute ischemic heart disease; S06.0XAA Concussion with loss of consciousness status unknown, initial encounter; M62.82 Rhabdomyolysis; L03.115 Cellulitis of right lower limb; I10 Essential (primary) hypertension; E78.5 Hyperlipidemia, unspecified; E11.51 Type 2 diabetes mellitus with diabetic peripheral angiopathy without gangrene; H40.9 Unspecified glaucoma; E83.51 Hypocalcemia; N40.0 Benign prostatic hyperplasia without lower urinary tract symptoms; E86.0 Dehydration; E53.8 Deficiency of other specified B group vitamins; F25.9 Schizoaffective disorder, unspecified; F41.9 Anxiety disorder, unspecified; R26.81 Unsteadiness on feet; F31.9 Bipolar disorder, unspecified; W18.30XA Fall on same level, unspecified, initial encounter; Y92.098 Other place in other non-institutional residence as the place of occurrence of the external cause; Z86.718 Personal history of other venous thrombosis and embolism
CPT/HCPCS: 36415; 70450-TC; 71045-TC-FY; 72125-TC; 80048; 80053; 80061; 81003; 82550; 82553; 82728; 82962; 83036; 83540; 83550; 83735; 84443; 84484; 85025; 85610; 85730; 87086; 93005; 93010; 93225; 93226; 93306-TC; 97116-GP; 97162-GP; 99285-25; J1756

== ENCOUNTER 2024-01-22 10:04 | Inpatient (IN) | payer OTHER, BC ==
[2024-01-22 10:55] VITALS: BMI 44.2
[2024-01-22 11:21] LABS: BASO % 0.5 % (0-2.0); EOS % 1.8 % (0-4.5); HEMATOCRIT 30.9 % (35.4-49); HEMOGLOBIN 10.4 GM/dL (11.7-16.9); LYMPH % 11.6 % (8-40); MCH 31.8 pg (25.7-33.7); MCHC 33.5 g/dl (32.0-35.9); MEAN CELL VOLUME 94.9 fl (80-96); MEAN PLT VOLUME 7.2 fl (7.5-11.1); MONO % 7.6 % (3.8-10.2); NEUT % 78.5 % (42.8-82.8); PLATELET COUNT 153 10^3/uL (134-434); RBC 3.26 M/mm3 (4.00-5.60); RDW 15.8 % (11.9-15.9); WHITE BLOOD COUNT 7.4 K/mm3 (4.0-10.0)
[2024-01-22 11:31] LABS: ACTIVATED PTT 39.9 SECONDS (25.2-36.5); INR 1.59 (0.83-1.09); PROTHROMBIN TIME (PATIENT) 18.4 SEC (9.7-13.0)
[2024-01-22 11:43] LABS: POTASSIUM 4.7 mmol/L (3.5-5.1)
[2024-01-22 11:46] LABS: ALBUMIN 2.9 g/dl (3.4-5.0); BLOOD UREA NITROGEN 13.7 mg/dL (7-18); CALCIUM 8.4 mg/dL (8.5-10.1)
[2024-01-22 11:49] LABS: CREATININE 0.9 mg/dL (0.55-1.3)
[2024-01-22 11:51] LABS: BILIRUBIN,TOTAL 0.6 mg/dL (0.2-1); TOT PROT 6.3 g/dl (6.4-8.2)
[2024-01-22] MEDS ORDERED: dilTIAZem HCL 125 MG/25 ML - 25 ML VIAL ONE ×2 (12:03→13:05)
[2024-01-22] MEDS: dilTIAZem HCL 50 MG/10 ML - 10 ML VIAL IVPUSH ONE ×2 (12:15→13:10)
[2024-01-22] MEDS ORDERED: dilTIAZem HCL 30 MG TABLET ONE (13:58)
[2024-01-22] MEDS: dilTIAZem HCL 30 MG TABLET PO ONE (14:03)
[2024-01-22] MEDS ORDERED: PANTOPRAZOLE 40 MG TABLET PO ONE (16:08)
[2024-01-22] MEDS ORDERED: FUROSEMIDE 40 MG/4 ML INJECTABLE VIAL ONE (16:08)
[2024-01-22] MEDS ORDERED: CEFTRIAXONE 1 GM/50 ML BAG ONE (16:08)
[2024-01-22] MEDS: CEFTRIAXONE 1,000 MG in DEXTROSE 5%-WATER - 50 ML IVPB ONE (16:38)
[2024-01-22] MEDS: LATANOPROST 0.005% OPHTH SOLN 2.5ML BOTTLE OU SCH (16:39)
[2024-01-22] MEDS: TIMOLOL 0.5% OPHTHALMIC SOL 5 ML BOTTLE OU SCH (16:39)
[2024-01-22] MEDS: PANTOPRAZOLE 40 MG TABLET PO SCH (16:39)
[2024-01-22] MEDS: INSULIN ASPART SLIDING SCALE (NOVOLOG) 1 VIAL SQ SCH (16:49)
[2024-01-22] MEDS: FUROSEMIDE 40 MG/4 ML INJECTABLE VIAL IVPUSH ONE (16:49)
[2024-01-22 20:38] LABS: MAGNESIUM 1.7 mg/dL (1.8-2.4)
[2024-01-22] MEDS ORDERED: ATORVASTATIN CA 20 MG TABLET (FP) ONE (22:07)
[2024-01-22] MEDS ORDERED: TAMSULOSIN HCL 0.4 MG CAP ONE (22:08)
[2024-01-22] MEDS ORDERED: APIXABAN 5 MG TABLET ONE (22:08)
[2024-01-22] MEDS: TAMSULOSIN HCL 0.4 MG CAP PO SCH (22:53)
[2024-01-22] MEDS: APIXABAN 5 MG TABLET PO SCH (22:53)
[2024-01-22] MEDS: PSYLLIUM 5.85 GM PACKET PO SCH (22:53)
[2024-01-22] MEDS: ATORVASTATIN CA 20 MG TABLET (FP) PO SCH (22:53)
[2024-01-22] MEDS ORDERED: cloNIDine HCL 0.1 MG TABLET ONE (23:32)
[2024-01-22] MEDS: cloNIDine HCL 0.1 MG TABLET PO ONE ×2 (23:38)
[2024-01-22] MEDS: OLANZapine 2.5 MG TABLET PO SCH (23:38)
[2024-01-23] MEDS ORDERED: MAGNESIUM SULFATE IN WATER 2 GM/50 ML IVPB IVPB ONE (08:34)
[2024-01-23] MEDS: MAGNESIUM 2GM/50ML STERILE WATER IVPB IVPB ONE (08:47)
[2024-01-23] MEDS ORDERED: PANTOPRAZOLE 40 MG TABLET PO ONE (08:51)
[2024-01-23] MEDS ORDERED: LOSARTAN POTASSIUM 50 MG TABLET ONE (08:51)
[2024-01-23] MEDS ORDERED: APIXABAN 5 MG TABLET ONE (08:51)
[2024-01-23] MEDS ORDERED: FUROSEMIDE 40 MG TABLET (FP) ONE (08:51)
[2024-01-23] MEDS ORDERED: FUROSEMIDE 40 MG/4 ML INJECTABLE VIAL ONE (08:55)
[2024-01-23] MEDS: FUROSEMIDE 40 MG/4 ML INJECTABLE VIAL IVPUSH SCH (09:10)
[2024-01-23] MEDS: LOSARTAN POTASSIUM 50 MG TABLET PO SCH (09:10)
[2024-01-23] MEDS: CYANOCOBALAMIN 1,000 MCG TABLET (FP) PO SCH (09:11)
[2024-01-23] MEDS ORDERED: ceFAZolin SODIUM 1 GM VIAL ONE ×3 (11:04→18:07)
[2024-01-23] MEDS: CEFAZOLIN 1 GM in DEXTROSE 5%-WATER - 50 ML IVPB SCH (12:06)
[2024-01-23] MEDS: INSULIN ASPART SLIDING SCALE (NOVOLOG) 1 VIAL SQ SCH (16:33)
[2024-01-23] MEDS ORDERED: ONDANSETRON 4 MG/2 ML VIAL IVPUSH PRN (19:57)
[2024-01-23] MEDS: cloNIDine HCL 0.1 MG TABLET PO SCH (21:17)
[2024-01-23] MEDS: FLUTICASONE PROP 0.05% 16 GM NASAL SPRAY NS PRN (22:03)
[2024-01-24] MEDS: POLYETHYLENE GLYCOL (HEALTHYLAX) 3350 17 GM PACKET PO SCH (11:20)
[2024-01-24] MEDS: MINERAL OIL ENEMA 133 ML ENEMA RC ONE (11:24)
[2024-01-24] MEDS: cloNIDine HCL 0.1 MG TABLET PO SCH (21:36)
[2024-01-24] MEDS ORDERED: DOCUSATE SODIUM 100 MG CAPSULE (FP) PO SCH (22:00)
[2024-01-25 07:38] LABS: BASO % 0.1 % (0-2.0); EOS % 1.7 % (0-4.5); HEMATOCRIT 30.2 % (35.4-49); HEMOGLOBIN 10.2 GM/dL (11.7-16.9); LYMPH % 15.7 % (8-40); MCH 31.7 pg (25.7-33.7); MCHC 33.9 g/dl (32.0-35.9); MEAN CELL VOLUME 93.4 fl (80-96); MEAN PLT VOLUME 7.2 fl (7.5-11.1); MONO % 10.1 % (3.8-10.2); NEUT % 72.4 % (42.8-82.8); PLATELET COUNT 149 10^3/uL (134-434); RBC 3.23 M/mm3 (4.00-5.60); RDW 16.2 % (11.9-15.9); WHITE BLOOD COUNT 6.4 K/mm3 (4.0-10.0)
[2024-01-25 07:49] LABS: POTASSIUM 3.6 mmol/L (3.5-5.1)
[2024-01-25 07:53] LABS: BLOOD UREA NITROGEN 16.5 mg/dL (7-18); CALCIUM 8.1 mg/dL (8.5-10.1)
[2024-01-25 07:56] LABS: CREATININE 0.9 mg/dL (0.55-1.3)
[2024-01-25] MEDS: dilTIAZem HCL 25 MG/5 ML - 5 ML VIAL IVPUSH ONE (08:41)
[2024-01-25] MEDS ORDERED: INSULIN (NOVOLOG) ASPART 100 UNITS/ML 10ML VIAL ONE (17:47)
[2024-01-26 07:19] LABS: BASO % 0.3 % (0-2.0); EOS % 1.3 % (0-4.5); HEMATOCRIT 31.4 % (35.4-49); HEMOGLOBIN 10.4 GM/dL (11.7-16.9); LYMPH % 15.9 % (8-40); MCH 31.4 pg (25.7-33.7); MCHC 33.2 g/dl (32.0-35.9); MEAN CELL VOLUME 94.6 fl (80-96); MEAN PLT VOLUME 7.1 fl (7.5-11.1); MONO % 11.3 % (3.8-10.2); NEUT % 71.2 % (42.8-82.8); PLATELET COUNT 163 10^3/uL (134-434); RBC 3.31 M/mm3 (4.00-5.60); RDW 16.3 % (11.9-15.9); WHITE BLOOD COUNT 7.7 K/mm3 (4.0-10.0)
[2024-01-26 07:38] LABS: POTASSIUM 3.7 mmol/L (3.5-5.1)
[2024-01-26 07:46] LABS: BLOOD UREA NITROGEN 30.5 mg/dL (7-18)
[2024-01-26 07:47] LABS: CALCIUM 7.8 mg/dL (8.5-10.1)
[2024-01-26 07:48] LABS: MAGNESIUM 1.8 mg/dL (1.8-2.4)
[2024-01-26 07:51] LABS: CREATININE 1.3 mg/dL (0.55-1.3)
[2024-01-26] MEDS: MAGNESIUM 2GM/50ML STERILE WATER IVPB IVPB ONE (09:10)
[2024-01-26] MEDS: METOPROLOL TARTRATE 5 MG/5 ML VIAL IVPUSH PRN (11:42)
[2024-01-26] MEDS: METOPROLOL TARTRATE 5 MG/5 ML VIAL IVPUSH ONE (12:49)
[2024-01-26] MEDS: metoPROLOL SUCCINATE 25 MG TAB.SR.24H (FP) PO ONE (12:54)
[2024-01-26] MEDS: MAGNESIUM 1GM/D5W - 1 GM/100 ML IVPB IVPB ONE (12:54)
[2024-01-26] MEDS: POTASSIUM CHLORIDE ORAL LIQUID 20 MEQ/15 ML PO ONE (14:09)
[2024-01-26] MEDS: dilTIAZem HCL 50 MG/10 ML - 10 ML VIAL IVPUSH ONE ×2 (15:38→18:24)
[2024-01-26] MEDS: dilTIAZem HCL 30 MG TABLET PO SCH (17:21)
[2024-01-26] MEDS: dilTIAZem HCL 25 MG/5 ML - 5 ML VIAL IVPUSH ONE (17:24)
[2024-01-26] MEDS: CEPHALEXIN MONOHYDRATE 500 MG CAPSULE (UD) PO SCH (18:31)
[2024-01-27] MEDS: dilTIAZem HCL 30 MG TABLET PO SCH (00:23)
[2024-01-27 07:08] LABS: BASO % 0.6 % (0-2.0); HEMATOCRIT 31.8 % (35.4-49); HEMOGLOBIN 10.4 GM/dL (11.7-16.9); LYMPH % 12.7 % (8-40); MCH 31.2 pg (25.7-33.7); MCHC 32.9 g/dl (32.0-35.9); MEAN CELL VOLUME 94.9 fl (80-96); MEAN PLT VOLUME 7.8 fl (7.5-11.1); MONO % 11.1 % (3.8-10.2); NEUT % 74.6 % (42.8-82.8); PLATELET COUNT 187 10^3/uL (134-434); RBC 3.35 M/mm3 (4.00-5.60); RDW 16.5 % (11.9-15.9); WHITE BLOOD COUNT 9.7 K/mm3 (4.0-10.0)
[2024-01-27 07:51] LABS: MAGNESIUM 2.5 mg/dL (1.8-2.4)
[2024-01-27 07:53] LABS: CALCIUM 8.2 mg/dL (8.5-10.1); CREATININE 1.3 mg/dL (0.55-1.3); PHOSPHOROUS 4.1 mg/dL (2.5-4.9)
[2024-01-27] MEDS: FUROSEMIDE 40 MG TABLET (FP) PO SCH (10:18)
[2024-01-27] MEDS: LURASIDONE HCL 40 MG TABLET PO SCH (15:58)
[2024-01-27] MEDS: dilTIAZem HCL 25 MG/5 ML - 5 ML VIAL IVPUSH PRN (15:58)
[2024-01-27] MEDS: METOPROLOL TARTRATE 5 MG/5 ML VIAL IVPUSH ONE (18:43)
[2024-01-27] MEDS: QUEtiapine FUMARATE 50 MG TABLET PO ONE (22:38)
[2024-01-28 06:53] LABS: BASO % 0.3 % (0-2.0); EOS % 1.1 % (0-4.5); HEMATOCRIT 31.1 % (35.4-49); HEMOGLOBIN 10.3 GM/dL (11.7-16.9); MCH 31.2 pg (25.7-33.7); MCHC 33.1 g/dl (32.0-35.9); MEAN CELL VOLUME 94.3 fl (80-96); MEAN PLT VOLUME 7.5 fl (7.5-11.1); MONO % 10.4 % (3.8-10.2); NEUT % 74.2 % (42.8-82.8); PLATELET COUNT 174 10^3/uL (134-434); RBC 3.29 M/mm3 (4.00-5.60); RDW 16.3 % (11.9-15.9); WHITE BLOOD COUNT 8.4 K/mm3 (4.0-10.0)
[2024-01-28 07:03] LABS: POTASSIUM 3.9 mmol/L (3.5-5.1)
[2024-01-28 07:08] LABS: BLOOD UREA NITROGEN 33.5 mg/dL (7-18)
[2024-01-29 06:49] LABS: BASO % 0.4 % (0-2.0); EOS % 2.4 % (0-4.5); HEMATOCRIT 32.6 % (35.4-49); HEMOGLOBIN 10.6 GM/dL (11.7-16.9); LYMPH % 13.4 % (8-40); MCH 30.4 pg (25.7-33.7); MCHC 32.4 g/dl (32.0-35.9); MEAN CELL VOLUME 93.9 fl (80-96); MEAN PLT VOLUME 7.7 fl (7.5-11.1); MONO % 8.7 % (3.8-10.2); NEUT % 75.1 % (42.8-82.8); PLATELET COUNT 202 10^3/uL (134-434); RBC 3.48 M/mm3 (4.00-5.60); RDW 15.5 % (11.9-15.9); WHITE BLOOD COUNT 8.4 K/mm3 (4.0-10.0)
[2024-01-29 06:59] LABS: POTASSIUM 3.9 mmol/L (3.5-5.1)
[2024-01-29 07:07] LABS: CALCIUM 8.3 mg/dL (8.5-10.1)
[2024-01-29 07:08] LABS: BLOOD UREA NITROGEN 28.2 mg/dL (7-18)
[2024-01-29 07:11] LABS: CREATININE 0.8 mg/dL (0.55-1.3)
[2024-01-29] MEDS: LURASIDONE HCL 40 MG, LURASIDONE HCL 20 MG PO SCH (09:07)
[2024-01-29] MEDS ORDERED: LURASIDONE HCL 20 MG TABLET PO SCH (10:00)
[2024-01-29] MEDS ORDERED: LURASIDONE HCL 40 MG TABLET PO SCH (10:00)
[2024-01-30 06:57] LABS: BASO % 0.4 % (0-2.0); EOS % 2.1 % (0-4.5); HEMATOCRIT 32.5 % (35.4-49); HEMOGLOBIN 10.6 GM/dL (11.7-16.9); LYMPH % 13.2 % (8-40); MCH 30.8 pg (25.7-33.7); MCHC 32.6 g/dl (32.0-35.9); MEAN CELL VOLUME 94.4 fl (80-96); MEAN PLT VOLUME 7.9 fl (7.5-11.1); MONO % 8.5 % (3.8-10.2); NEUT % 75.8 % (42.8-82.8); PLATELET COUNT 211 10^3/uL (134-434); RBC 3.44 M/mm3 (4.00-5.60); RDW 15.9 % (11.9-15.9); WHITE BLOOD COUNT 8.2 K/mm3 (4.0-10.0)
[2024-01-30 07:22] LABS: CREATININE 0.9 mg/dL (0.55-1.3)
[2024-01-31 12:30] LABS: BASO % 0.5 % (0-2.0); EOS % 2.3 % (0-4.5); HEMATOCRIT 33.9 % (35.4-49); HEMOGLOBIN 10.9 GM/dL (11.7-16.9); LYMPH % 14.2 % (8-40); MCH 30.8 pg (25.7-33.7); MCHC 32.2 g/dl (32.0-35.9); MEAN CELL VOLUME 95.8 fl (80-96); MEAN PLT VOLUME 8.3 fl (7.5-11.1); MONO % 6.2 % (3.8-10.2); NEUT % 76.8 % (42.8-82.8); PLATELET COUNT 213 10^3/uL (134-434); RBC 3.53 M/mm3 (4.00-5.60); RDW 16.4 % (11.9-15.9); WHITE BLOOD COUNT 7.6 K/mm3 (4.0-10.0)
[2024-01-31 13:36] LABS: POTASSIUM 4.3 mmol/L (3.5-5.1)
[2024-01-31 13:37] LABS: ALBUMIN 2.5 g/dl (3.4-5.0); BLOOD UREA NITROGEN 26.3 mg/dL (7-18); CALCIUM 8.6 mg/dL (8.5-10.1); MAGNESIUM 2.1 mg/dL (1.8-2.4)
[2024-01-31 13:41] LABS: CREATININE 0.9 mg/dL (0.55-1.3)
[2024-01-31 13:43] LABS: BILIRUBIN,TOTAL 0.4 mg/dL (0.2-1); TOT PROT 6.1 g/dl (6.4-8.2)
[2024-02-02 08:17] LABS: BASO % 0.4 % (0-2.0); EOS % 2.1 % (0-4.5); HEMATOCRIT 33.8 % (35.4-49); LYMPH % 14.1 % (8-40); MCH 30.7 pg (25.7-33.7); MCHC 32.6 g/dl (32.0-35.9); MEAN CELL VOLUME 94.1 fl (80-96); MEAN PLT VOLUME 7.4 fl (7.5-11.1); MONO % 5.8 % (3.8-10.2); NEUT % 77.6 % (42.8-82.8); PLATELET COUNT 250 10^3/uL (134-434); RBC 3.59 M/mm3 (4.00-5.60); RDW 15.9 % (11.9-15.9); WHITE BLOOD COUNT 6.6 K/mm3 (4.0-10.0)
[2024-02-02 08:18] LABS: POTASSIUM 3.9 mmol/L (3.5-5.1)
[2024-02-02 08:24] LABS: CREATININE 0.8 mg/dL (0.55-1.3)
[2024-02-02 23:55] LABS: MAGNESIUM 2.2 mg/dL (1.8-2.4)
[2024-02-03 15:13] LABS: BASO % 0.3 % (0-2.0); EOS % 1.8 % (0-4.5); HEMATOCRIT 32.2 % (35.4-49); HEMOGLOBIN 10.7 GM/dL (11.7-16.9); LYMPH % 14.8 % (8-40); MCH 30.9 pg (25.7-33.7); MCHC 33.3 g/dl (32.0-35.9); MEAN CELL VOLUME 92.8 fl (80-96); MEAN PLT VOLUME 7.1 fl (7.5-11.1); MONO % 5.9 % (3.8-10.2); NEUT % 77.2 % (42.8-82.8); PLATELET COUNT 273 10^3/uL (134-434); RBC 3.48 M/mm3 (4.00-5.60); RDW 15.9 % (11.9-15.9); WHITE BLOOD COUNT 7.8 K/mm3 (4.0-10.0)
[2024-02-03 15:36] LABS: ALBUMIN 2.6 g/dl (3.4-5.0); BLOOD UREA NITROGEN 15.9 mg/dL (7-18); CALCIUM 8.5 mg/dL (8.5-10.1); MAGNESIUM 1.9 mg/dL (1.8-2.4)
[2024-02-03 15:39] LABS: CREATININE 0.9 mg/dL (0.55-1.3)
[2024-02-03 15:40] LABS: BILIRUBIN,TOTAL 0.4 mg/dL (0.2-1); TOT PROT 6.1 g/dl (6.4-8.2)
[2024-02-03] MEDS: MAGNESIUM OXIDE 400 MG TABLET (FP) PO ONE (17:22)
[2024-02-04 08:40] LABS: BASO % 0.6 % (0-2.0); EOS % 1.9 % (0-4.5); HEMATOCRIT 31.2 % (35.4-49); HEMOGLOBIN 10.2 GM/dL (11.7-16.9); LYMPH % 13.1 % (8-40); MCH 30.7 pg (25.7-33.7); MCHC 32.7 g/dl (32.0-35.9); MEAN CELL VOLUME 93.8 fl (80-96); MEAN PLT VOLUME 7.5 fl (7.5-11.1); MONO % 6.7 % (3.8-10.2); NEUT % 77.7 % (42.8-82.8); PLATELET COUNT 218 10^3/uL (134-434); RBC 3.32 M/mm3 (4.00-5.60); RDW 16.4 % (11.9-15.9); WHITE BLOOD COUNT 8.4 K/mm3 (4.0-10.0)
[2024-02-04 08:59] LABS: POTASSIUM 4.2 mmol/L (3.5-5.1)
[2024-02-04 09:01] LABS: BLOOD UREA NITROGEN 16.6 mg/dL (7-18); CALCIUM 8.6 mg/dL (8.5-10.1)
[2024-02-04 09:04] LABS: CREATININE 0.8 mg/dL (0.55-1.3)
[2024-02-04 23:31] LABS: N-TERMINAL BNP 251.2 pg/ml (5-450)
[2024-02-05 13:59] VITALS: BP 136/80; PULSE 73; RESP 20; TEMP 97.6
== END 2024-02-05 18:52 | disposition home or self-care (01) | DRG 602 ==
LOC: JER 10:04 → JERBED 15:12 → OBSVTOIN 15:26 → J4W 01-23 20:56
PROVIDERS: ADMIT Internal Medicine; ATTEND Internal Medicine
DX: L03.115 Cellulitis of right lower limb (principal); I50.33 Acute on chronic diastolic (congestive) heart failure; Z68.41 Body mass index [BMI] 40.0-44.9, adult; F20.0 Paranoid schizophrenia; I11.0 Hypertensive heart disease with heart failure; I48.0 Paroxysmal atrial fibrillation; E78.5 Hyperlipidemia, unspecified; E83.42 Hypomagnesemia; E11.51 Type 2 diabetes mellitus with diabetic peripheral angiopathy without gangrene; N40.0 Benign prostatic hyperplasia without lower urinary tract symptoms; E66.01 Morbid (severe) obesity due to excess calories; K59.00 Constipation, unspecified; E53.8 Deficiency of other specified B group vitamins; D64.9 Anemia, unspecified; E77.8 Other disorders of glycoprotein metabolism; E88.09 Other disorders of plasma-protein metabolism, not elsewhere classified; M48.02 Spinal stenosis, cervical region; Z86.718 Personal history of other venous thrombosis and embolism
CPT/HCPCS: 36415; 71045-TC-FY; 80048; 80053; 82728; 82962; 83540; 83550; 83735; 83880; 84100; 84484; 85025; 85610; 85730; 87635; 93005; 93010; 93970-TC; 97116-GP; 97162-GP; 99285-25; G0378

== ENCOUNTER 2024-09-08 14:26 | Inpatient (IN) | payer OTHER, BC ==
[2024-09-08 14:44] VITALS: BMI 26.6
[2024-09-08 15:13] LABS: BASO % 0.3 % (0-2.0); EOS % 1.5 % (0-4.5); HEMATOCRIT 35.4 % (35.4-49); HEMOGLOBIN 11.6 GM/dL (11.7-16.9); LYMPH % 13.2 % (8-40); MCH 30.9 pg (25.7-33.7); MCHC 32.6 g/dl (32.0-35.9); MEAN CELL VOLUME 94.6 fl (80-96); MEAN PLT VOLUME 7.7 fl (7.5-11.1); MONO % 5.5 % (3.8-10.2); NEUT % 79.5 % (42.8-82.8); PLATELET COUNT 158 10^3/uL (134-434); RBC 3.74 M/mm3 (4.00-5.60); RDW 16.3 % (11.9-15.9); WHITE BLOOD COUNT 7.8 K/mm3 (4.0-10.0)
[2024-09-08 15:24] LABS: INR 1.5 (0.83-1.09); PROTHROMBIN TIME (PATIENT) 16.8 SEC (9.7-13.0)
[2024-09-08 15:37] LABS: POTASSIUM 4.2 mmol/L (3.5-5.1)
[2024-09-08 15:39] LABS: CALCIUM 8.8 mg/dL (8.5-10.1)
[2024-09-08 15:40] LABS: ALBUMIN 3.7 g/dl (3.4-5.0); BLOOD UREA NITROGEN 18.9 mg/dL (7-18); MAGNESIUM 1.7 mg/dL (1.8-2.4)
[2024-09-08 15:43] LABS: CREATININE 1.1 mg/dL (0.55-1.3)
[2024-09-08 15:44] LABS: BILIRUBIN,TOTAL 0.7 mg/dL (0.2-1); TOT PROT 7.2 g/dl (6.4-8.2)
[2024-09-08 16:42] LABS: HIV INTERPRETATION NEGATIVE (NEGATIVE)
[2024-09-08] MEDS ORDERED: ACETAMINOPHEN 325 MG TABLET (FP) PO PRN (19:47)
[2024-09-08] MEDS ORDERED: MAGNESIUM SULFATE IN WATER 2 GM/50 ML IVPB IVPB ONE (19:49)
[2024-09-08] MEDS ORDERED: METOPROLOL TARTRATE 25 MG TABLET (FP) ONE (19:49)
[2024-09-08] MEDS: METOPROLOL TARTRATE 25 MG TABLET (FP) PO ONE (20:08)
[2024-09-08] MEDS: SODIUM CHLORIDE 250 ML IV STA (20:09)
[2024-09-08] MEDS: MAGNESIUM SULFATE IN WATER 2 GM/50 ML IVPB IVPB ONE (20:09)
[2024-09-08] MEDS ORDERED: METOPROLOL TARTRATE 5 MG/5 ML VIAL ONE (20:52)
[2024-09-08] MEDS: METOPROLOL TARTRATE 5 MG/5 ML VIAL IVPUSH PRN (20:58)
[2024-09-08] MEDS: APIXABAN 5 MG TABLET PO SCH (21:55)
[2024-09-08] MEDS: PANTOPRAZOLE 40 MG TABLET PO SCH (21:55)
[2024-09-08] MEDS: ATORVASTATIN CA 20 MG TABLET (FP) PO SCH (21:56)
[2024-09-08] MEDS ORDERED: TIMOLOL 0.5% OPHTHALMIC SOL 5 ML BOTTLE OU SCH (22:00)
[2024-09-08] MEDS: PSYLLIUM 5.85 GM PACKET PO SCH (22:28)
[2024-09-08] MEDS: LATANOPROST 0.005% OPHTH SOLN 2.5ML BOTTLE OU SCH (22:28)
[2024-09-09] MEDS: INSULIN ASPART SLIDING SCALE (NOVOLOG) 1 VIAL SQ SCH (08:13)
[2024-09-09] MEDS: cloNIDine HCL 0.1 MG TABLET PO SCH (08:31)
[2024-09-09] MEDS: dilTIAZem HCL 60 MG TABLET PO SCH (08:31)
[2024-09-09] MEDS: CYANOCOBALAMIN 1,000 MCG TABLET (FP) PO SCH (09:13)
[2024-09-09] MEDS: FUROSEMIDE 20 MG TABLET (FP) PO SCH (09:14)
[2024-09-09] MEDS ORDERED: LOSARTAN POTASSIUM 50 MG TABLET PO SCH (10:00)
[2024-09-09] MEDS ORDERED: TIMOLOL 0.5% OPHTHALMIC SOL 5 ML BOTTLE OU SCH (10:00)
[2024-09-09] MEDS: TIMOLOL 0.5% OPHTHALMIC SOL 5 ML BOTTLE OU SCH (10:12)
[2024-09-09] MEDS: dilTIAZem HCL 30 MG TABLET PO SCH (12:12)
[2024-09-09] MEDS: NYSTATIN POWDER 100,000 UNITS/GM - 15 GM TOPICAL POWDER TP SCH (13:15)
[2024-09-09] MEDS: FLUTICASONE PROP 0.05% 16 GM NASAL SPRAY NS SCH (13:43)
[2024-09-09] MEDS: LURASIDONE HCL 20 MG TABLET PO SCH (21:22)
[2024-09-10] MEDS: dilTIAZem HCL 60 MG TABLET PO SCH (09:45)
[2024-09-10] MEDS: FUROSEMIDE 20 MG TABLET (FP) PO SCH (09:46)
[2024-09-10 10:01] LABS: BASO % 0.4 % (0-2.0); EOS % 1.8 % (0-4.5); HEMATOCRIT 33.1 % (35.4-49); HEMOGLOBIN 10.7 GM/dL (11.7-16.9); LYMPH % 17.5 % (8-40); MCH 30.8 pg (25.7-33.7); MCHC 32.2 g/dl (32.0-35.9); MEAN CELL VOLUME 95.4 fl (80-96); MEAN PLT VOLUME 7.7 fl (7.5-11.1); MONO % 7.5 % (3.8-10.2); NEUT % 72.8 % (42.8-82.8); PLATELET COUNT 141 10^3/uL (134-434); RBC 3.47 M/mm3 (4.00-5.60); RDW 16.1 % (11.9-15.9); WHITE BLOOD COUNT 6.5 K/mm3 (4.0-10.0)
[2024-09-10 10:18] LABS: POTASSIUM 4.1 mmol/L (3.5-5.1)
[2024-09-10 10:19] LABS: CALCIUM 8.5 mg/dL (8.5-10.1)
[2024-09-10 10:20] LABS: BLOOD UREA NITROGEN 21.7 mg/dL (7-18)
[2024-09-10 10:23] LABS: CREATININE 1.2 mg/dL (0.55-1.3)
[2024-09-11 07:47] LABS: POTASSIUM 4.1 mmol/L (3.5-5.1)
[2024-09-11 07:52] LABS: BLOOD UREA NITROGEN 26.5 mg/dL (7-18); CALCIUM 8.1 mg/dL (8.5-10.1)
[2024-09-11 07:55] LABS: CREATININE 1.2 mg/dL (0.55-1.3)
[2024-09-11 08:34] LABS: BASO % 0.4 % (0-2.0); EOS % 1.9 % (0-4.5); HEMOGLOBIN 10.5 GM/dL (11.7-16.9); LYMPH % 14.3 % (8-40); MCH 31.2 pg (25.7-33.7); MCHC 32.9 g/dl (32.0-35.9); MEAN CELL VOLUME 94.7 fl (80-96); MONO % 7.2 % (3.8-10.2); NEUT % 76.2 % (42.8-82.8); PLATELET COUNT 133 10^3/uL (134-434); RBC 3.38 M/mm3 (4.00-5.60); WHITE BLOOD COUNT 6.5 K/mm3 (4.0-10.0)
[2024-09-11] MEDS: IRON SUCROSE INJECTION 300 MG in SODIUM CHLORIDE 235 ML IVPB ONE (09:31)
[2024-09-12 08:26] LABS: BASO % 0.3 % (0-2.0); EOS % 2.1 % (0-4.5); HEMATOCRIT 31.9 % (35.4-49); HEMOGLOBIN 10.8 GM/dL (11.7-16.9); LYMPH % 15.1 % (8-40); MCH 31.3 pg (25.7-33.7); MCHC 33.7 g/dl (32.0-35.9); MEAN CELL VOLUME 92.7 fl (80-96); MEAN PLT VOLUME 7.8 fl (7.5-11.1); NEUT % 73.5 % (42.8-82.8); PLATELET COUNT 143 10^3/uL (134-434); RBC 3.44 M/mm3 (4.00-5.60); RDW 16.2 % (11.9-15.9); WHITE BLOOD COUNT 7.5 K/mm3 (4.0-10.0)
[2024-09-12 08:58] LABS: POTASSIUM 4.2 mmol/L (3.5-5.1)
[2024-09-12 09:09] LABS: BLOOD UREA NITROGEN 24.2 mg/dL (7-18); CALCIUM 8.7 mg/dL (8.5-10.1)
[2024-09-12 09:12] LABS: CREATININE 1.1 mg/dL (0.55-1.3)
[2024-09-13 08:30] LABS: POTASSIUM 4.2 mmol/L (3.5-5.1)
[2024-09-13 08:31] LABS: BASO % 0.4 % (0-2.0); EOS % 1.8 % (0-4.5); HEMATOCRIT 33.2 % (35.4-49); LYMPH % 16.1 % (8-40); MCH 31.3 pg (25.7-33.7); MCHC 33.3 g/dl (32.0-35.9); MEAN CELL VOLUME 93.9 fl (80-96); MEAN PLT VOLUME 8.2 fl (7.5-11.1); MONO % 8.2 % (3.8-10.2); NEUT % 73.5 % (42.8-82.8); PLATELET COUNT 153 10^3/uL (134-434); RBC 3.53 M/mm3 (4.00-5.60); RDW 16.1 % (11.9-15.9); WHITE BLOOD COUNT 7.9 K/mm3 (4.0-10.0)
[2024-09-13 08:36] LABS: BLOOD UREA NITROGEN 23.6 mg/dL (7-18); CALCIUM 8.5 mg/dL (8.5-10.1)
[2024-09-13 08:39] LABS: CREATININE 1.1 mg/dL (0.55-1.3)
[2024-09-13 14:03] LABS: N-TERMINAL BNP 1522.8 pg/ml (5-450)
[2024-09-13] MEDS: MELATONIN 5 MG TABLETS PO PRN (21:50)
[2024-09-14 08:23] LABS: BASO % 0.6 % (0-2.0); EOS % 1.9 % (0-4.5); HEMATOCRIT 33.6 % (35.4-49); LYMPH % 14.9 % (8-40); MCH 31.2 pg (25.7-33.7); MCHC 32.7 g/dl (32.0-35.9); MEAN CELL VOLUME 95.3 fl (80-96); MEAN PLT VOLUME 8.3 fl (7.5-11.1); MONO % 8.1 % (3.8-10.2); NEUT % 74.5 % (42.8-82.8); PLATELET COUNT 152 10^3/uL (134-434); RBC 3.53 M/mm3 (4.00-5.60); RDW 16.1 % (11.9-15.9); WHITE BLOOD COUNT 7.7 K/mm3 (4.0-10.0)
[2024-09-14 08:46] LABS: POTASSIUM 4.3 mmol/L (3.5-5.1)
[2024-09-14 08:49] LABS: CALCIUM 8.2 mg/dL (8.5-10.1)
[2024-09-14 08:50] LABS: BLOOD UREA NITROGEN 25.1 mg/dL (7-18)
[2024-09-14 15:42] VITALS: BP 101/60; PULSE 48; RESP 17; TEMP 97.9
== END 2024-09-14 15:40 | disposition home or self-care (01) | DRG 309 ==
LOC: JER 14:26 → JERBED 18:00 → OBSVTOIN 20:02 → J4W 21:12
PROVIDERS: ADMIT Internal Medicine; ATTEND Internal Medicine
DX: I48.92 Unspecified atrial flutter (principal); B49 Unspecified mycosis; Z68.42 Body mass index [BMI] 45.0-49.9, adult; I10 Essential (primary) hypertension; E78.5 Hyperlipidemia, unspecified; D64.9 Anemia, unspecified; E11.51 Type 2 diabetes mellitus with diabetic peripheral angiopathy without gangrene; F25.9 Schizoaffective disorder, unspecified; M48.02 Spinal stenosis, cervical region; G47.00 Insomnia, unspecified; I44.1 Atrioventricular block, second degree; D50.9 Iron deficiency anemia, unspecified; E83.42 Hypomagnesemia; K59.00 Constipation, unspecified; N40.0 Benign prostatic hyperplasia without lower urinary tract symptoms; E53.8 Deficiency of other specified B group vitamins; R26.81 Unsteadiness on feet; E66.01 Morbid (severe) obesity due to excess calories; Z86.718 Personal history of other venous thrombosis and embolism
CPT/HCPCS: 0241U-QW; 36415; 71045-TC-FY; 80048; 80053; 80061; 82728; 82962; 83036; 83540; 83550; 83605; 83735; 83880; 84439; 84443; 84484; 85025; 85610; 86803; 86850; 86900; 86901; 87389; 93005; 93010; 99285-25; G0378; J1756

== ENCOUNTER 2025-05-08 13:46 | Emergency (ER) | payer OTHER, BC ==
[2025-05-08 13:58] VITALS: BP 152/57; PULSE 55; RESP 18; TEMP 98.1; BMI 44.5
== END 2025-05-08 16:29 | disposition home or self-care (01) ==
LOC: JER 13:46
DX: S81.801A Unspecified open wound, right lower leg, initial encounter (principal); X58.XXXA Exposure to other specified factors, initial encounter
CPT/HCPCS: 99283-25